=== PATIENT | female | born 1975 | race Caucasian/White ===

== ENCOUNTER 2017-06-20 22:23 | Inpatient (IN) ==
[2017-06-21] MEDS: MORPHINE IV PRN ×5 (01:30→22:58)
[2017-06-21] MEDS ORDERED: NITROGLYCERIN SL PRN (03:52)
[2017-06-21] MEDS ORDERED: ZOFRAN IV PRN (03:52)
[2017-06-21 04:27] LABS: MANUAL DIFF NEEDED? NO
[2017-06-21 04:44] LABS: BASO% 0.3 % (0.0-0.8); EOS# 0.14 X1000 (0.0-0.7); EOS% 1.3 % (0.0-10.0); HEMOGLOBIN 12.6 g/dL (12.0-16.0); LYMPH# 3.39 X1000 (1.2-3.4); MCHC 34.1 g/dL (33-37); MCV 96.9 FL (81-99); MONO# 0.69 X1000 (0.11-0.59); MONO% 6.5 % (1.7-9.3); NEUT% 59.9 % (42.2-75.2); PLT 322 X1000 (130-400); RBC 3.82 XMIL (4.2-5.4)
[2017-06-21] MEDS: PRILOSEC PO SCH ×2 (06:24→09:57)
[2017-06-21] MEDS: LOVENOX SUBQ SCH (06:26)
[2017-06-21 06:55] LABS: URINE CULTURE NEEDED? NO; URINE MICRO REVIEW NEEDED? NO; URINE SOURCE CLEAN CATCH
[2017-06-21 07:01] LABS: BILIRUBIN URINE NEGATIVE (NEGATIVE); BLOOD URINE NEGATIVE (NEGATIVE); COLOR YELLOW; GLUCOSE URINE NEGATIVE (NEGATIVE); LEUKOCYTES URINE NEGATIVE (NEGATIVE); NITRITE URINE NEGATIVE (NEGATIVE); PROTEIN URINE TRACE mg/dL (NEGATIVE); TURBIDITY URINE CLEAR (CLEAR); UROBILINOGEN URINE NORMAL (NORMAL)
[2017-06-21 07:02] LABS: UR EPITHELIAL CELLS <10 /HPF (<10); URINE BACTERIA NEGATIVE /HPF; URINE RBC <10 /HPF (<10); URINE WBC <10 /HPF (<10)
--- NOTE | 2017-06-21 07:09 | EKG Report ---
Test Performed on : 06/21/2017 06:37:09 AM Test Reason : Chest Pain Blood Pressure : / mmHG Vent. Rate : 075 BPM Atrial Rate : 075 BPM P-R Int : 158 ms QRS Dur : 102 ms QT Int : 450 ms P-R-T Axes : 051 058 041 degrees QTc Int : 502 ms Normal sinus rhythm. Prolonged QT Abnormal ECG No previous ECGs available Confirmed by Stevie Vazquez MD ([id number]) on 06/22/2017 6:03:01 AM
[2017-06-21 07:24] LABS: UR AMPHETAMINES QUAL NONE DETECTED (NONE DETECT); UR BARBITUATES QUAL NONE DETECTED (NONE DETECT); UR BENZODIAZEPIN QUAL PRESUMPTIVE POSITIVE (NONE DETECT); UR CANNABINOIDS QUAL NONE DETECTED (NONE DETECT); UR COCAINE QUAL NONE DETECTED (NONE DETECT); UR METHADONE QUAL NONE DETECTED (NONE DETECT); UR OPIATES QUAL PRESUMPTIVE POSITIVE (NONE DETECT); UR OXYCODONE QUAL NONE DETECTED (NONE DETECT); UR PCP QUAL NONE DETECTED (NONE DETECT)
--- NOTE | 2017-06-21 08:23 | Diag Imaging Result Doc PS360 ---
EXAM: US ABDOMEN-COMPLETE HISTORY: RUQ Pain/ Tenderness TECHNIQUE: COMPARISON: None. FINDINGS: Normal pancreatic head and body. The pancreatic tail is obscured. Normal inferior vena cava and aorta. No focal hepatic abnormality. Normal right kidney. No hydronephrosis. The gallbladder is not present. The common bile duct measures 7 mm. The spleen is not enlarged. No ascites. Normal left kidney. No hydronephrosis. IMPRESSION: Cholecystectomy, but otherwise normal abdominal ultrasound Electronically signed by Liu Ojeda 06/21/2017 8:21 AM
--- NOTE | 2017-06-21 08:59 | HISTORY AND PHYSICAL ---
PRIMARY CARE PROVIDER: Dr. Sagastume. CHIEF COMPLAINT: Chest pain. HISTORY OF PRESENT ILLNESS: Ms. Goodman is a 41-year-old female who is a transfer from [facility] ER. She presented there yesterday June 20 at approximately 9 p.m. She presented with complaints of chest pain that started approximately 1:30 p.m. earlier that day. She reports that at the onset of chest pain, she was actually riding in a car. She was sitting, was not doing any strenuous activity. She reports chest pain that was in the center of her chest that radiated to her right shoulder, right breast, and around under her right breast in the right upper quadrant area. She describes it as a constant dull pain that was sharp in nature at times. She did report associated symptoms of one episode of feeling lightheaded, as well as some diaphoresis, shortness of breath, and did have 1 episode of nausea and vomiting. She reports that the pain medicine as well as nitroglycerin did improve her pain. It took it from about 8/10 down to 4/10. She states that she has had previous episodes like this, though not recently, where her chest began to hurt. She stated she thought it was because her potassium was low and will take a couple of potassium tablets and she would feel better. She did state that prior to arriving to the ER at [facility] yesterday, when her chest pain began at 1:30 she did take four 20 mEq potassium chloride tablets equaling a total of 80 mEq prior to coming to the ER. The patient does have prescriptions for Lasix as well as hydrochlorothiazide. When asked about this, she states that she takes it for frequent swelling in her legs though she denied any known history of congestive heart failure or any other heart problems except for hypertension. She does take pain medication as well as Neurontin for some chronic back pain secondary to a bulging disk and a spinal defect, though does not take any other medication except for an occasional BC Powder. She does report that she has a cough chronically in the mornings, though today she did report coughing all day, though this has been nonproductive. She denies any fever, body aches, or chills. She also denies any dysuria or urinary frequency. She reports that her last bowel movement was yesterday. She denies any hematochezia or melena. At [facility], they did do labs as well as an EKG for which her cardiac enzymes were negative. Her EKG showed sinus rhythm with frequent premature ventricular complexes with a prolonged QT at a rate of 95, QTc was 492. They also did perform a chest x-ray which showed no acute cardiopulmonary process and an abdomen, a flat and upright, which showed an abnormal bowel gas pattern, though this was nonspecific and nonobstructive with no evidence of free air. She was transferred to [facility] for further cardiology evaluation. REVIEW OF SYSTEMS: A 12 point review of systems was conducted with the patient. All were negative except for pertinent positives mentioned above in HPI. PAST MEDICAL HISTORY: 1. Hypertension. 2. Frequent swelling/edema in bilateral lower extremities. 3. Recurrent hypokalemia. 4. Chronic pain from bulging disk and reported spinal defect. 5. Gout. PAST SURGICAL HISTORY: 1. Hysterectomy. 2. Cholecystectomy. 3. Tubal ligation. SOCIAL HISTORY: The patient is a smoker. She smokes 1 pack of cigarettes a day and has so for 20 years. She denies any alcohol or illicit drug use. She lives in [place], [place]. She is disabled secondary to her chronic back pain. FAMILY HISTORY: Positive for lung cancer in her father. Her mother has a history of diabetes and CVA. She has 3 brothers who have a history of diabetes mellitus and heart disease. ALLERGIES: Patient reports no known allergies. HOME MEDICATION: 1. Potassium chloride 20 mEq tablet 1 p.o. daily. 2. Uloric 40 mg tablet 1 p.o. daily. 3. Hydrochlorothiazide 25 mg tablet 2 p.o. daily. 4. Lasix 40 mg p.o. daily. 5. Neurontin 800 mg p.o. t.i.d. 6. Hysingla extended release 40 mg tablet 1 p.o. daily. DIAGNOSTIC DATA/LABORATORY RESULTS: These are from the labs that were drawn at [facility]. White blood cell count is 16.1, hemoglobin 14.1, hematocrit 40.7, platelet count is 387,000. PT 10.1, INR 0.99, PTT 28.1. Sodium 139, potassium 3.2, chloride 90, bicarb 34, BUN 6, creatinine 0.7, glucose 129, calcium 8.9. Liver function tests are within normal limits. Magnesium 1.5, CK is 96. CK-MB is 1, myoglobin is 25, troponin is less than 0.01. EKG showed normal sinus rhythm with frequent premature ventricular complexes and a prolonged QT at a rate of 95 with a QTc of 492. CHEST X-RAY: Two views showed no acute cardiopulmonary process. Abdomen flat and upright, showed the bowel gas pattern is abnormal but nonspecific and nonobstructive with no evidence of free air. Scattered air fluid levels are noted on the upright image. These x-ray results were per radiologist. PHYSICAL EXAMINATION: VITAL SIGNS: Temperature 98.1 degrees, heart rate 92, respirations 18, blood pressure is 133/58, oxygen saturation is 98% on room air. GENERAL: Ms. Goodman is a pleasant 41-year-old, female who is resting comfortably in the inpatient bed. She was in no acute distress. She was awake, alert, and able to answer all questions appropriately. HEENT: Head is atraumatic, normocephalic. Pupils are equal, round, reactive to light, were 3 mm bilaterally and brisk. Subconjunctivae were pink. Oral mucosa is moist. Oropharynx is clear. NECK: Supple. Trachea midline. CARDIOVASCULAR: Patient has normal S1, S2. No murmurs, gallops, rubs appreciated with a regular rate and rhythm. PULMONARY: Patient has symmetrical chest expansion bilaterally. Lung sounds are clear to auscultation in bilateral full wang. ABDOMEN: Soft. Nondistended. The patient did report some tenderness upon palpation in the right upper quadrant, though the patient did report some tenderness upon palpation in the right upper quadrant. Bowel sounds were present in all 4 quadrants, were normoactive. EXTREMITIES: No cyanosis, clubbing, or edema noted. Pulse ,motor and sensory were intact in all extremities. Pedal pulses were 3+ bilaterally. Capillary refill is less than 3. INTEGUMENTARY: Patient's skin is pink, warm, dry, and intact. No lesions or sores noted. NEUROLOGICAL: Patient is alert and oriented x3. Cranial nerves 2-12 are grossly intact. ASSESSMENT/PLAN: 1. Chest pain. For this we will continue with a series of cardiac enzymes. We will repeat an EKG in the morning. The patient has had reported problems with swelling in her extremities. We have placed an order for an echocardiogram. Her pain at this time is relieved with morphine and nitroglycerin. She was given 325 mg aspirin at [facility]. She will be placed on telemetry for close monitoring and we have placed a consult with cardiology and will await their evaluation and further recommendations. 2. Hypertension. The patient does take hydrochlorothiazide though has been having recurrent problems with hypokalemia. We will hold this medication at this time. Her blood pressure is within normal limits and we will continue to monitor and likely place her on something different given her problems with this. 3. Chronic pain. We will continue the patient's Neurontin. She is receiving morphine at this time 2 mg IV q.4 hours for pain. 4. Nicotine dependence. We will discuss with the patient the importance of smoking cessation throughout her admission and upon discharge. We will place her on nicotine patch. 5. Deep vein thrombosis prophylaxis. We have provided Lovenox 40 mg subcutaneously q.24 hours. The patient will be placed on medical floor with telemetry. She will have vital signs q.4 hours. We will do strict intake and output. She will be NPO at this time for an abdominal ultrasound in the morning. She did report some right upper quadrant pain. She has had her gallbladder removed; though was still quite tender in this area and this has also been an area that she is reporting some pain. We will do the ultrasound for further evaluation and continue to follow. We will repeat a CBC, CMP, and cardiac enzymes in the morning. We have also placed an order for urinalysis and a urine drug screen as well. Further orders and recommendations pending hospital course, diagnostic studies, and physician evaluation. Dictated by DEVENDRA Carnes for Leon Pierce MD cc: Leon Pierce MD MTDD
[2017-06-21] MEDS ORDERED: NICODERM PATCH TD SCH (09:00)
[2017-06-21] MEDS ORDERED: ULORIC PO SCH (09:00)
[2017-06-21 09:10] LABS: AGAP 16; ALBUMIN 3.8 g/dL (3.5-5.0); ALKALINE PHOSPHATASE 71 U/L (32-104); BUN 5 mg/dL (8-22); CALCIUM 8.5 mg/dL (8.8-10.2); CHLORIDE 95 mmol/L (98-107); COSMO 283; GOT 17 U/L (10-30); GPT 13 U/L (10-36); POTASSIUM 2.8 mmol/L (3.5-5.1); SODIUM 143 mmol/L (136-145); TCO2 32 mmol/L (25-35); TOTAL BILIRUBIN 0.56 mg/dL (0.20-1.00); TOTAL PROTEIN 6.5 g/dL (6.3-8.3)
[2017-06-21] MEDS: NEURONTIN PO SCH ×3 (09:57→17:44)
[2017-06-21] MEDS ORDERED: KLOR-CON PO ONE (10:06)
[2017-06-21] MEDS ORDERED: MAGNESIUM SULFATE 4 GM/S.W.I. 4 GM/100 ML IVPB IV ONE ×2 (10:39→10:44)
[2017-06-21] MEDS ORDERED: NS 250 ML ONE (10:44)
[2017-06-21] MEDS: POTASSIUM CHLORIDE 20 MEQ/SWI 20 MEQ/100 ML IVPB IV SCH ×2 (10:50→15:03)
[2017-06-21 10:53] LABS: INR 1.01; PROTIME 10.6 Seconds (9.2-11.7); PTT 29.2 Seconds (22.0-36.0)
--- NOTE | 2017-06-21 12:08 | CONSULTATION ---
DATE OF CONSULTATION: 06/21/2017 CHIEF COMPLAINT: Chest pain. HISTORY OF PRESENT ILLNESS: This is a 41-year-old female presenting with chest discomfort to [facility] at about 9:00 p.m. last night. The patient states that she was in her usual state of health and experienced a bout of significant pain under the left breast, left anterior chest, sharp and moving down under the ribcage. This lasted for a moderate amount of time, no more than an hour and subsided. At about 9:00 p.m., she had a second bout of pain, this time more intense, and the pain was radiating from the chest to the epigastrium and then under the ribcage all the way to the back, like a tight belt. This went on for a while, and after being seen at [facility], she was sent to this hospital for further management. Over here, she was given nitroglycerin that seemed to help the pain. Right now , the pain is mild in severity. She is feeing just some headache, probably from the nitroglycerin. Upon initial encounter, her potassium level was noted to be low at 2.8. Her sodium is 143, BUN is 5, creatinine 0.6. Hemoglobin is 12.6. Her initial tests performed at [facility] included an abdominal x- ray that showed bowel gas pattern is abnormal but nonspecific. Her chest x-ray showed no acute cardiopulmonary process. There were scattered air fluid levels noted on the upright image. An abdominal ultrasound shows evidence of previous cholecystectomy. PAST MEDICAL HISTORY: Positive for hypertension. She has had some mild swelling of the hands and legs. She has chronic pain for which she goes to a pain physician in [place]. PAST SURGICAL HISTORY: She has had previous cervical cancer, and that was resected years ago. Subsequently she has had hysterectomy. She had previous tubal ligation and cholecystectomy. She has had 3 children. SOCIAL HISTORY: She lives with for the past 27 years. She is a smoker of 1 pack of cigarettes a day. REVIEW OF SYSTEMS: She has been complaining of cough and exertional dyspnea for some time. She is limited to perform her house chores by back pain and shortness of breath. The patient is obese with a body mass index of 33. FAMILY HISTORY: According to her is strongly positive for premature coronary heart disease in multiple siblings. HOME MEDICATIONS: At the time of his admission included potassium chloride, Uloric, hydrochlorothiazide, furosemide, gabapentin, Neurontin, hydrocodone bitartrate which is Hysingla ER 1 tablet daily. ALLERGIES: She reports no allergies. Other past medical history of note, she reports having elevated uric acid. Of note, her lipid panel shows an LDL of 93, HDL of 31, total cholesterol is 153, triglycerides 165. Her liver function tests were normal at the time of this patient's admission. PHYSICAL EXAMINATION: Blood pressure is 84/45, temperature 97.7, pulse 77, respirations 19. She is awake, alert and oriented, no distress. HEENT: Unremarkable. Chest: Diminished breath sounds bilaterally with some decreased expiratory phase. She is slightly tender to palpation in the epigastrium. No masses or hepatomegaly noted. No gallop, rubs or murmurs noted in the heart. Extremities showed good pulses, no peripheral edema. Neurologic: She moves all 4 extremities, follows commands. Skin shows no rash. DIAGNOSTIC DATA: Her 12-lead EKG obtained today shows sinus rhythm with prolongation of the QT interval. IMPRESSION: 1. The patient is presenting with really atypical chest discomfort. The differential includes coronary insufficiency, noncardiac pain, stemming from gastrointestinal origin, possibly pancreatitis given the fact that she has been taking hydrochlorothiazide and other diuretics. 2. History of chronic pain syndrome, on terminal gauger supervisor narcotic therapy. 3. nursing home smoker. The patient smokes 1 pack of cigarettes a day. She has clinical findings consistent with COPD. 4. Significant hypokalemia. 5. Obesity. RECOMMENDATIONS: 1. The patient is strongly advised to quit smoking. 2. The patient probably needs to reevaluate the need for aggressive diuretic therapy, especially if she does not really have congestive heart failure or any condition that really warrants the use of a combination of 2 diuretics. That would prevent recurrent hypokalemia. We are going to replace potassium and magnesium. We will review an echocardiogram that was done today, and we may consider doing a stress test on her at some point. At this time, it would not be a good idea given the fact that her potassium is very low with an abnormal EKG, and she could easily develop a serious arrhythmia. 3. Further intervention will depend on her clinical course. cc: MD Leon Abernathy MD MTDD
--- NOTE | 2017-06-21 14:30 | ECHO REPORT ---
ORDER DATE: 06/21/2017 INDICATION: Chest pain. FINDINGS: 1. Right atrium is normal size at 2.8 cm. 2. Mild tricuspid regurgitation. RV systolic pressure 34. 3. Normal RV size and systolic function. 4. No significant pulmonic insufficiency. 5. Normal left atrial size at 3 cm. 6. No mitral valve prolapse. Mild mitral regurgitation. 7. Normal LV size, end-diastolic dimension of 4.3. Normal wall thicknesses with a posterior and interventricular septal wall thickness 0.9 cm each. Normal LV systolic function. Calculated EF of 65% with normal wall motion. 8. Aortic valve opens well. No evidence of stenosis or insufficiency. The valve is trileaflet. 9. Aorta appears normal in visualized segments. 10. No pericardial effusion seen. cc: MD Leon Garcia MD
--- NOTE | 2017-06-21 15:19 | EKG Report ---
Test Performed on : 06/21/2017 2:58:29 PM Test Reason : chest pain Blood Pressure : / mmHG Vent. Rate : 081 BPM Atrial Rate : 081 BPM P-R Int : 154 ms QRS Dur : 092 ms QT Int : 416 ms P-R-T Axes : 066 052 044 degrees QTc Int : 483 ms Normal sinus rhythm. Prolonged QT Abnormal ECG When compared with ECG of 21-JUN-2017 06:37, (Unconfirmed) No significant change was found Confirmed by Stevie Vazquez MD ([id number]) on 06/22/2017 6:03:48 AM
--- NOTE | 2017-06-21 15:37 | PROGRESS NOTE ---
DATE: 06/21/2017 SUBJECTIVE: Ms. Goodman was admitted this morning. She presented with chest pain. A 41-year-old white female, transferred from [facility] ER, presented on the 06/20 yesterday at approximately 9 p.m. Presented with complaints of chest pain. Started at approximately 1:30 p.m. earlier in the day. Reports an onset of pain actually riding in a car. No exertion. She was sitting and not driving. Reports chest pain in the center of her chest. Radiates to the right shoulder, right breast, and around her right breast in the right upper quadrant area. She described it as constant, dull pain that was sharp in nature at times. She did associate symptoms with episode of feeling lightheaded as well as some diaphoresis, shortness of breath. Did have one episode of nausea and vomiting. Presented. Nitroglycerin seemed to improve the pain. She states she has not had any previous episodes like this, so admitted with chest pain and Cardiology consulted. Very atypical. Differential includes: 1. Acute coronary insufficiency, noncardiac pain stemming from gastroesophageal origin, possibly pancreatitis given the fact she has been taking hydrochlorothiazide and other diuretics. 2. History of chronic pain. She has been on narcotic therapy. 3. Long-term smoker. OBJECTIVE: General: Exam today, she says she is back is hurting her and her legs are hurting her. Vital signs: Temperature 98.4 degrees, pulse 87, respirations 20, blood pressure 107/53. Lungs: Clear in all lung wang. Cardiovascular: Regular rhythm and rate without murmur or S3. Abdomen: Soft. Skin: Warm and dry. Chest: No chest pain. Wall tenderness reproduced. LABORATORY AND IMAGING: Troponin less than 0.01. Drug screen positive for opiates and positive for benzodiazepines. Abdominal ultrasound done this morning, status post cholecystectomy. Otherwise unremarkable. ASSESSMENT: Review of orders, I do not see anything to change. cc: MD Leon Talbot MD
[2017-06-21 16:16] LABS: AGAP 9; BUN 7 mg/dL (8-22); CALCIUM 8.8 mg/dL (8.8-10.2); CHLORIDE 93 mmol/L (98-107); COSMO 273; POTASSIUM 3.4 mmol/L (3.5-5.1); SODIUM 137 mmol/L (136-145); TCO2 35 mmol/L (25-35)
[2017-06-21] MEDS: TYLENOL PO PRN (17:48)
[2017-06-22] MEDS: MORPHINE IV PRN ×4 (04:20→18:13)
[2017-06-22] MEDS: LOVENOX SUBQ SCH (06:25)
[2017-06-22] MEDS: PRILOSEC PO SCH (06:26)
[2017-06-22 07:18] LABS: AGAP 9; BUN 8 mg/dL (8-22); CALCIUM 8.6 mg/dL (8.8-10.2); CHLORIDE 100 mmol/L (98-107); COSMO 282; POTASSIUM 3.2 mmol/L (3.5-5.1); SODIUM 142 mmol/L (136-145); TCO2 33 mmol/L (25-35)
[2017-06-22] MEDS: NEURONTIN PO SCH ×3 (09:42→17:28)
[2017-06-22] MEDS: NICODERM PATCH TD SCH (09:43)
[2017-06-22] MEDS: POTASSIUM CHLORIDE 20% LIQUID PO SCH ×2 (09:52→15:31)
[2017-06-22] MEDS: NORCO-7.5 PO PRN ×3 (12:53→20:36)
[2017-06-22] MEDS ORDERED: NEOSPORIN OINTMENT TUBE TOP ONE (15:32)
[2017-06-22] MEDS: TYLENOL PO PRN ×2 (15:38→20:53)
--- NOTE | 2017-06-22 17:27 | PROGRESS NOTE ---
DATE: 06/22/2017 Ms. Goodman was admitted on 06/21/2017 with chest pain by Dr. Sagastume. A 41-year-old female, transferred from [facility] presented on the 20 of June with complaints of chest pain. This started approximately 1:30 early in the day and had progressive chest pain. Was admitted. EKG and enzymes unremarkable. Dr. Kline is seen her yesterday and very atypical chest pain. The plan was to do a Lexiscan, nuclear cardiac scan when able. EKG from this morning does not appear to be changed and no significant ST-segment changes. ASSESSMENT AND PLAN: 1. Nonspecific cardiac pain. Plan I think is to do a Lexiscan. I think we are waiting on electrolytes were a little low, potassium a little low and supplementing. The magnesium looks good so hopefully Lexiscan tomorrow. 2. History of chronic pain syndrome. Aware. 3. Long-term smoker. 4. Hypokalemia which was supplemented. 5. Obesity. cc: Abhi Chinchilla MD
[2017-06-23] MEDS: NORCO-7.5 PO PRN ×2 (01:15→13:56)
[2017-06-23] MEDS: MORPHINE IV PRN ×3 (05:20→15:18)
[2017-06-23] MEDS: PRILOSEC PO SCH (06:12)
[2017-06-23] MEDS: LOVENOX SUBQ SCH (06:12)
[2017-06-23 06:57] LABS: AGAP 5; BUN 8 mg/dL (8-22); CALCIUM 8.8 mg/dL (8.8-10.2); CHLORIDE 102 mmol/L (98-107); COSMO 276; MAGNESIUM 1.8 mg/dL (1.5-2.7); POTASSIUM 4.2 mmol/L (3.5-5.1); SODIUM 139 mmol/L (136-145); TCO2 32 mmol/L (25-35)
[2017-06-23] MEDS ORDERED: LEXISCAN ONE (08:08)
[2017-06-23] MEDS: NEURONTIN PO SCH ×2 (10:46→13:56)
[2017-06-23] MEDS: NICODERM PATCH TD SCH (10:47)
[2017-06-23 13:56] VITALS: BP 171/73
[2017-06-23] MEDS: TYLENOL PO PRN (15:18)
--- NOTE | 2017-06-23 16:40 | DISCHARGE SUMMARY ---
ADMISSION DATE: 06/20/2017 DISCHARGE DATE: 06/23/2017 HISTORY OF PRESENT ILLNESS: This is a 41-year-old, who was a transfer from [facility]. Presented on June 20 at approximately 9 p.m. She had complaints of chest pain that started approximately 1:30 p.m. earlier that day. Reports the onset of chest pain was actually riding in a car. She was sitting and not doing anything strenuous. Chest pain was at the center of her chest and radiated to the right shoulder and around to the right breast in the right upper quadrant area described consistent with dull pain was sharp in nature at times. She did report associated symptoms 1 episode of feeling lightheaded as well as some diaphoresis and shortness of breath. Had 1 episode of nausea and vomiting. She reported that the pain medicine as well as her nitroglycerin did improve the pain. It took it from an 8/10 to a 4/10. States that she has had previous episodes like this though not recently where her chest begins to hurt. She started she thought it was because her potassium was low and that she could take a couple potassium tablets and would feel better. Prior to arriving to the ER in [facility] chest pain began at 1:30. She did take her for 20 mEq of KCl for total of 80 mEq before she came to the emergency room. The patient did have prescription for Lasix and hydrochlorothiazide. When asked about this she states that she takes it infrequent for swelling in her legs. Denies any known history of congestive heart failure or liver dysfunction except for hypertension her only significant history. She does take pain medication as well as Neurontin for chronic back pain, bulging disk and a spinal defect that she reports. She does not take any other medication except for occasional BC Powder and she reports cough, chronic in the mornings, and did report coughing all day but it was nonproductive. PAST MEDICAL HISTORY: Reviewed again: 1. Hypertension. 2. Frequent swelling, edema bilateral extremities. 3. Recurring hypokalemia. 4. Chronic pain from bulging disk, reported spinal defect. 5. Gout. 6. Chest pain seemed to resolve. HOSPITAL COURSE: EKGs and cardiac enzymes were unremarkable. She had an abdominal ultrasound done on 06/21 and it was status post cholecystectomy, otherwise normal. Dr. Kline was consulted, nonspecific chest pain and elected do a Rodri scan nuclear cardiac scan which was completely normal. No sign of ischemia and felt she could go home on 06/23/2017. DISCHARGE INSTRUCTIONS: She is on Uloric 1 tablet daily. Lasix 40 mg a day. Neurontin she takes 800 mg t.i.d. I suggested she stop her hydrochlorothiazide and she can continue the potassium as per her primary care physician. She has hydrocodone which I will leave between her and her family physician. She does not have a primary care physician. She was followed by Dr. Sagastume in the past. cc: Abhi Chinchilla MD
--- NOTE | 2017-06-23 18:30 | Diag Imaging Result Document ---
PROCEDURE NAME: MYOCARDIAL PERF SCAN, STR/REST - 06/23/2017 STUDY: Same day rest-stress Lexiscan myocardial perfusion study. INDICATION: Chest pain, obesity. DESCRIPTION: The patient came into the Nuclear Lab, received a rest injection of technetium 99 sestamibi 11.9 millicuries. Multiple tomographic views of the cardiac structure were obtained at rest. Subsequently the patient underwent a Lexiscan protocol by injection of Lexiscan 0.4 mg. At peak injection, the patient received 33.2 millicuries of technetium 99 sestamibi. Multiple views of the cardiac structure were obtained following the completion of the protocol. SUMMARY OF ELECTROCARDIOGRAPHIC PORTION OF STUDY: Resting ECG shows sinus rhythm. Rate 73 beats per minute. Resting blood pressure 124/73. Resting ECG looks normal. During infusion of Lexiscan, the heart rate increased to a maximum of 112 beats per minute. Blood pressure dropped to 106/60. The patient reported moderate chest discomfort and mild shortness of breath. No palpitations were reported. ECG showed no ischemic changes. Following the completion of the infusion, the heart rate and blood pressure returned back to baseline. Symptoms subsided. IMPRESSION: In summary, the electrocardiographic response to infusion of Lexiscan is deemed to be normal. The symptoms reported by the patient are nonspecific. SUMMARY OF MYOCARDIAL PERFUSION PORTION OF STUDY: Poststress tomographic views of the left ventricle showed a very trivial focal apical defect. The rest images showed that this defect is fixed. Polar plots revealed the same. There is essentially normal myocardial perfusion with a very trivial apical anterior defect that is focal and mild. This is very consistent with apical thinning or breast attenuation artifact. No ischemia is noted. Gated SPECT shows normal left ventricular systolic function. Ejection fraction estimated at 73% with normal ventricular volumes. No wall motion abnormality. Lung-heart ratio is normal. TID is normal. IMPRESSION: In summary, this study showed: 1. Unremarkable electrocardiographic response to infusion of Lexiscan. 2. Normal poststress myocardial perfusion scan. There is no scintigraphic evidence of pharmacologically induced myocardial ischemia. 3. Normal left ventricular systolic function. Ejection fraction estimated at 73% with normal ventricular volumes. No wall motion abnormality. This study would represent low risk for ischemic events. cc: MD Heidy Abernathy PA
== END 2017-06-23 18:43 | disposition home or self-care (01) ==
LOC: SUATTDRO 22:23 → 3N 22:23
PROVIDERS: ATTEND Emergency Medicine

== ENCOUNTER 2019-10-18 13:53 | Inpatient (IN) ==
[2019-10-18] MEDS ORDERED: DUONEB (A & A) INH ONE (14:14)
--- NOTE | 2019-10-18 14:21 | PROVIDER DOCUMENTATION ---
HPI-Respiratory General - General Chief Complaint: SEPSIS ALERT - D Stated Complaint: SOB Time Seen by Provider: 10/18/19 14:09 Source: patient Allergies/Adverse Reactions: Patient Allergies Allergy/AdvReac Type Severity Reaction Status Date / Time No Known Allergies Allergy Verified 10/18/19 14:48 Home Medications: Home Medication List Medication Instructions Recorded Confirmed Last Taken Type Gabapentin [Neurontin] 800 mg PO TID 01/24/16 10/18/19 07/29/18 History Potassium Chloride 1 tab PO DAILY 06/20/17 10/18/19 08/14/17 09:00 History Furosemide [Lasix] 40 mg PO DAILY 08/14/17 10/18/19 07/29/18 History Buprenorphine/Naloxone S.l. 1 each SL TID 09/01/18 10/18/19 Unknown History [Suboxone 8 mg/2 mg Film] Febuxostat [Uloric] 40 mg PO DAILY 10/18/19 10/18/19 Unknown History Folic Acid 1 mg PO DAILY 10/18/19 10/18/19 Unknown History Meloxicam 15 mg PO DAILY 10/18/19 10/18/19 Unknown History - History of Present Illness-Resp Nature of Presenting Problem: 44 YOF PRESENTS ON REC OF URGENT CARE FOR SOB, COUGH INCREASED SPUTUM PRODUCTION, EPISODIC PRESYNCOPE X 1 MONTH. SHE HAS SEEN HER PCP AND BEEN ON MULTIPLE ABX WITHOUT IMPROVEMENT. SHE DOES SMOKE. SHE DENIES CP, FEVER, CHILLS, N/V/D Severity in ED: reports: moderate Onset/Duration: reports: other (BEGAN ONE MONTH AGO) Timing: reports: still present Context: reports: recent URI Exposure: reports: unknown cause Cough Quality/Degree: reports: severe, productive cough, sputum (GREEN) Current Respiratory Medication Therapy: Initiated none Modifying Factors: improves with: rest. worse with: exertion, lying down Associated Symptoms: reports: cough, shortness of breath Similar Symptoms Previously?: No Recently seen or treated by another doctor?: No Review of Systems - Adult - REVIEW OF SYSTEMS - ADULT Constitutional: reports: no symptoms reported. denies: see HPI, chills, fever, fatique, night sweats, weight gain, weight loss, other Eyes: reports: no symptoms reported. denies: see HPI, discharge, dry eyes, decreased vision, blurred vision, double vision, eye pain, redness, other Ears, Nose, Mouth & Throat: reports: no symptoms reported. denies: see HPI, ear discharge, ear pain, hearing loss, tinnitus, epistaxis, sinus problem, nose pain, loose teeth, mouth/dental pain, mouth swelling, hoarseness, throat pain, throat swelling, other Cardiovascular: reports: no symptoms reported. denies: see HPI, chest pain, edema, heart murmur, irregular heart rate, orthopnea, palpitations, poor circulation, PND, syncope, other Respiratory: reports: see HPI, cough, dyspnea on exertion, excessive sputum production, shortness of breath, wheezing Gastrointestinal: reports: no symptoms reported. denies: see HPI, abdominal pain, hematemesis, constipation, diarrhea, difficulty swallowing, frequent heartburn, nausea, poor appetite, rectal bleeding, vomiting, other Genitourinary: reports: no symptoms reported. denies: see HPI, dysuria, discharge, frequency, flank pain, frequent UTI's, hematuria, hesitency, incontinence, urinary retention, urgency, other Musculoskeletal: reports: no symptoms reported. denies: see HPI, bone pain, back pain, frequent leg cramps, joint pain, joint swelling, muscle aches, muscle weakness, neck pain, other Integumentary: reports: no symptoms reported. denies: see HPI, hives, hair loss, itching, mole changes, nail changes, rash, skin sores/ulcer, skin thickening, other Neurological: reports: see HPI, dizziness/vertigo. denies: no symptoms reported, ataxia, headache/migraines, loss of balance, numbness, paresthesia, seizure, slurred speech, syncope, tremors, other Psychiatric: reports: no symptoms reported. denies: see HPI, anxiety, anti- depressant use, alcohol/drug dependence, depression, emotional problems, insomnia, panic attacks, suicidal thoughts, other Endocrine: reports: no symptoms reported. denies: see HPI, change in skin pigment, excessive sweating, goiter, cold intolerance, heat intolerance, increased hunger, increased thirst, polyuria, other Hematologic/Lymphatic: reports: no symptoms reported. denies: see HPI, blood clots, easy bruising, low blood count, lymphedema, prolonged bleeding, swollen lymph nodes, transfusions, other Allergic/Immunologic: reports: no symptoms reported. denies: see HPI, allergic reactions, allergic rhinitis, asthma, eczema, food allergy, frequent infections, hay fever, hives, positive PPD, urticaria, other Past History - Adult - PAST MEDICAL HISTORY-ADULT Review of Records: reports: Nursing Assessment Review, Social history reviewed & non-contributory. Major Childhood Illnesses: reports: denies history Cardiovascular: reports: denies history Respiratory: reports: denies history Gastrointestinal: reports: denies history Obstetrical/Gynecological: reports: denies history Genitourinary: reports: denies history Musculoskeletal: reports: chronic pain (back) Neurological: reports: denies history Psychiatric: reports: denies history Endocrine/Immune: reports: denies history Other Conditions: reports: denies history - PRIOR SURGERIES/PROCEDURES Surgical/Procedure History: reports: cholecystectomy, hysterectomy, BTL - IMMUNIZATION STATUS Childhood Immunizations: See Nurse Assessment Flu Vaccine: See Nurse Assessment - FAMILY HISTORY Family History: reviewed, not pertinent Physical Exam-General - PHYSICAL EXAM-ADULT Initial Vital Signs Reviewed: Yes - CONSTITUTIONAL General Appearance: alert, no apparent distress - EYES Eyes: PERRL/EOMI, pink conjunctivae - HEAD, EARS, NOSE, MOUTH & THROAT HENMT: normocephalic/atraumatic, moist mucous membranes, normal ENT inspection - NECK Neck: non-tender, full range of motion, supple - RESPIRATORY Respiratory: chest non-tender, no pleuratic chest pain, no respiratory distress, no accessory muscle use, wheezing - CARDIOVASCULAR Cardiovascular: normal peripheral pulses, regular rate, rhythm, no edema, no gallop, no JVD, no murmur - GASTROINTESTINAL (ABDOMEN) Abdominal Exam: normal bowel sounds, non tender, soft - LYMPHATIC Lymphatic: no adenopathy - MUSCULOSKELETAL Back Exam: normal inspection, no CVA tenderness, no vertebral tenderness Extremity: normal range of motion, non-tender, normal gait Peripheral Pulses: radial (R): 2+, radial (L): 2+ - SKIN Integumentary: normal color, normal turgor, warm/dry - NEUROLOGIC Neurologic: grossly normal - PSYCHIATRIC Psych/Mental Status: normal mood/affect, oriented x 3 Progress - PLAN OF CARE/RESULTS Progress/Plan/Lab Results: Vital Signs - 8 hr 10/18/19 13:58 10/18/19 14:33 10/18/19 14:45 Temperature 98.7 F Pulse Rate 98 H 98 H 108 H Pulse Rate [Sitting] Pulse Rate [Standing] Pulse Rate [Supine] Respiratory Rate 22 20 23 Blood Pressure 116/80 Blood Pressure [Sitting] Blood Pressure [Standing] Blood Pressure [Supine] O2 Sat by Pulse Oximetry 92 L 93 L 93 L 10/18/19 15:09 10/18/19 15:10 10/18/19 15:15 Temperature Pulse Rate 92 H 99 H 95 H Pulse Rate [Sitting] Pulse Rate [Standing] Pulse Rate [Supine] Respiratory Rate 22 16 16 Blood Pressure 143/106 Blood Pressure [Sitting] Blood Pressure [Standing] Blood Pressure [Supine] O2 Sat by Pulse Oximetry 93 L 92 L 92 L 10/18/19 15:23 10/18/19 15:26 10/18/19 15:27 Temperature Pulse Rate 83 94 H Pulse Rate [Sitting] 88 Pulse Rate [Standing] 90 Pulse Rate [Supine] 83 Respiratory Rate 20 16 Blood Pressure 163/106 166/99 Blood Pressure [Sitting] 166/99 Blood Pressure [Standing] 149/94 Blood Pressure [Supine] 163/106 O2 Sat by Pulse Oximetry 95 92 L 10/18/19 15:29 10/18/19 15:30 10/18/19 15:33 Temperature Pulse Rate 103 H 92 H 90 Pulse Rate [Sitting] Pulse Rate [Standing] Pulse Rate [Supine] Respiratory Rate 19 19 18 Blood Pressure 149/94 Blood Pressure [Sitting] Blood Pressure [Standing] Blood Pressure [Supine] O2 Sat by Pulse Oximetry 93 L 94 L Laboratory Results - last 24 hr 10/18/19 10/18/19 10/18/19 14:38 14:38 14:38 WBC 12.01 H RBC 4.72 Hgb 14.4 Hct 44.7 MCV 94.7 MCH 30.5 MCHC 32.2 L RDW Std Deviation 14.0 Plt Count 351 MPV 11.0 H Immature Gran % (Auto) 0.2 Neut % (Auto) 60.7 Lymph % (Auto) 28.7 Rooks % (Auto) 7.2 Eos % (Auto) 2.6 Baso % (Auto) 0.6 Immature Gran # (Auto) 0.03 Neut # (Auto) 7.28 H Lymph # (Auto) 3.45 H Rooks # (Auto) 0.87 H Eos # (Auto) 0.31 Baso # (Auto) 0.07 PT 13.4 INR 1.01 PTT (Actin FS) 27.5 D-Dimer, Quantitative 2.97 H Sodium 141 Potassium 3.5 Chloride 95 L Carbon Dioxide 35 Anion Gap 11 BUN 9 Creatinine 0.5 Estimated GFR/1.73 m2 > 60 BUN/Creatinine Ratio 18 Glucose 114 H Calculated Osmolality 281 Calcium 9.2 Total Bilirubin 0.27 AST 17 ALT 16 Alkaline Phosphatase 118 H Creatine Kinase 43 Troponin T Total Protein 6.9 Albumin 4.3 Globulin 2.6 Albumin/Globulin Ratio 1.7 Plasma Lactate Urine Source Urine Color Urine Turbidity Urine pH Ur Specific [place] Urine Protein Ur Glucose (Stick) Ur Ketones (Stick) Urine Blood Urine Nitrite Urine Bilirubin Urobilinogen Dipstick Urine Leukocytes Urine WBC (Auto) Urine RBC (Auto) U Epithel Cells (Auto) Urine Bacteria (Auto) 10/18/19 10/18/19 10/18/19 14:38 14:38 15:11 WBC RBC Hgb Hct MCV MCH MCHC RDW Std Deviation Plt Count MPV Immature Gran % (Auto) Neut % (Auto) Lymph % (Auto) [place] % (Auto) Eos % (Auto) Baso % (Auto) Immature Gran # (Auto) Neut # (Auto) Lymph # (Auto) [place] # (Auto) Eos # (Auto) Baso # (Auto) PT INR PTT (Actin FS) D-Dimer, Quantitative Sodium Potassium Chloride Carbon Dioxide Anion Gap BUN Creatinine Estimated GFR/1.73 m2 BUN/Creatinine Ratio Glucose Calculated Osmolality Calcium Total Bilirubin AST ALT Alkaline Phosphatase Creatine Kinase Troponin T < 0.010 Total Protein Albumin Globulin Albumin/Globulin Ratio Plasma Lactate 1.1 Urine Source CLEAN CATCH Urine Color YELLOW Urine Turbidity HAZY Urine pH 8.0 Ur Specific [place] 1.013 Urine Protein NEGATIVE Ur Glucose (Stick) NEGATIVE Ur Ketones (Stick) NEGATIVE Urine Blood NEGATIVE Urine Nitrite NEGATIVE Urine Bilirubin NEGATIVE Urobilinogen Dipstick NORMAL Urine Leukocytes NEGATIVE Urine WBC (Auto) <10 Urine RBC (Auto) <10 U Epithel Cells (Auto) <10 Urine Bacteria (Auto) NEGATIVE Orders Category Date Time Status Cardiac Monitoring DIRECTED Care 10/18/19 14:06 Active IV Insertion ORDERED Care 10/18/19 14:06 Completed Notify MD of + Sepsis Screen NOW Care 10/18/19 14:06 Active Notify Physician As Ordered Care 10/18/19 14:06 Active Orthostatic Vital Signs NOW Care 10/18/19 14:15 Active Oxygen Saturation ORDERED Care 10/18/19 14:15 Active CHEST-1 VIEW [RAD] Stat Exams 10/18/19 14:[address] HEAD W/O CONTRAST [CT] Stat Exams 10/18/19 14:15 Completed CTA [CT ANGIOGRM PULMONARY ARTERIES] [CT] Stat Exams 10/18/19 15:23 Completed BLOOD CULTURE [BLDCUL] Stat Lab 10/18/19 14:38 Received CBC WITH DIFF [HEME] Stat Lab 10/18/19 14:38 Completed CK PROFILE [SP CHEM] Stat Lab 10/18/19 14:38 Completed COMPREHENSIVE METABOLIC PANEL [CHEM] Stat Lab 10/18/19 14:38 Completed D-DIMER [COAG] Stat Lab 10/18/19 14:38 Completed LACTATE, PLASMA [CHEM] Lab 10/18/19 17:15 Uncollected LACTATE, PLASMA [CHEM] Lab 10/18/19 20:15 Uncollected LACTATE, PLASMA [CHEM] Q3H Lab 10/18/19 14:38 Completed PROTIME WITH INR [COAG] Stat Lab 10/18/19 14:38 Completed PTT [COAG] Stat Lab 10/18/19 14:38 Completed TROPONIN T Stat Lab 10/18/19 14:38 Completed URINALYSIS W/POSS RFLX CULT [URINALYSIS] Stat Lab 10/18/19 15:11 Completed Albuterol 2.5MG/Ipratrop 0.5MG [Duoneb (A & A)] Med 10/18/19 14:14 Discontinued 3 ml INH NOW ONE Methylprednisolone Sod Succ [Solu-Medrol] Med 10/18/19 15:06 Discontinued 125 mg IV NOW ONE Aerosol Treatments Routine Oth 10/18/19 14:15 Completed Aerosol Treatments Stat Oth 10/18/19 14:15 Completed Oxygen Device Stat Oth 10/18/19 14:06 Completed EKG [EKG] Stat Ther 10/18/19 13:58 Draft Result Diagrams: 10/18/19 14:38 10/18/19 14:38 - EKG 1 Time of EKG reading by physician:: 13:58 EKG Read and Signed by:: Lion Silva EKG Interpretation (*Must complete 3 of following elements*): Normal Rate: 94 Rhythm: NSR [place]: normal QRS: normal MD Interval: normal ST Wave: normal - XRAY 1 XRAY Study: Chest Impression: See EMR Report (EXAM: CHEST-1 VIEW 10/18/2019 HISTORY: SOB TECHNIQUE: AP portable upright at 1415 COMMENT: There are no previous studies. There is an apparent granuloma in the left base. The heart size and primary vascularity are within normal limits. There is no evidence of acute pulmonary disease. IMPRESSION: No acute disease. Electronically signed by Tai Sherman 10/18/2019 2:22 PM 10/18/19 1422 Interpreting Physician: Tai Sherman MD Dictated Date/Time: 10/18/19 1421 cc: Lion Silva MD; Diane Ott) - CT/MRI 1 CT Study: Head Impression: See EMR Report (EXAM: CT HEAD W/O CONTRAST 10/18/2019 HISTORY: DIZZINESS, PRESYNCOPE TECHNIQUE: This exam was performed using automated exposure control, adjustment of mA or kV according to patient size, and/or use of iterative reconstruction technique. COMMENT: There are no previous studies available for comparison. There is opacification of multiple ethmoid air cells bilaterally. There is mucosal thickening in the right sphenoid sinus and left maxillary sinus with fluid in the left maxillary sinus and to lesser extent the right maxillary sinus. There is no evidence of intracranial mass effect, bleed, or abnormal extra-axial fluid collection. IMPRESSION: Sinusitis as described. No acute intracranial disease. Electronically signed by Tai Sherman 10/18/2019 3:01 PM 10/18/19 1501 Interpreting Physician: Tai Sherman MD Dictated Date/Time: 10/18/19 1500 cc: Tamara Yeung; Diane Ott) - CONSULTS/PCP/HOSPITALIST Notification #1 *Consult/PCP/Hospitalist*: DEVENDRA STOCKTON Time Discussed: 16:24 Consult Disposition: Admit Departure - Departure Date of Disposition Decision: 10/18/19 Time of Disposition Decision: 16:23 DIAGNOSIS: Sinusitis, Pneumonia Disposition: HOME 01 Certified Medical Emergency: Emergent Condition: Fair Referrals and Follow-Ups: Diane Ott CRNP [Primary Care Provider] - - Critical Care Note This patient required my direct & personal management of CC.: No Attestation - Physician/ ANN Attestation Patient care was provided by Advanced Practice Provider:: Yes Advanced Practice Provider:: Tamara Yeung Advanced Practice Provider documentation review:: The Mid-level provider documentation, treatment plan and medical decision making was reviewed by the physician who agrees with all treatment and medical decision making by the MLP. The physician spent face to face time with patient:: No Advanced Practice Provider documentation review:: Supervising physician onsite and consulted in the evaluation and care of this patient. The physician did not have a face to face encounter with the patient.
--- NOTE | 2019-10-18 14:24 | Diag Imaging Result Doc PS360 ---
EXAM: CHEST-1 VIEW 10/18/2019 HISTORY: SOB TECHNIQUE: AP portable upright at 1415 COMMENT: There are no previous studies. There is an apparent granuloma in the left base. The heart size and primary vascularity are within normal limits. There is no evidence of acute pulmonary disease. IMPRESSION: No acute disease. Electronically signed by Tai Sherman 10/18/2019 2:22 PM
[2019-10-18 15:03] LABS: BASO# 0.07 X1000 (0.0-0.2); BASO% 0.6 % (0.0-0.8); EOS# 0.31 X1000 (0.0-0.7); EOS% 2.6 % (0.0-10.0); HEMATOCRIT 44.7 % (37.0-47.0); HEMOGLOBIN 14.4 g/dL (12.0-16.0); IMM GRAN# 0.03 X1000 (0.0-0.04); IMM GRAN% 0.2 % (0.0-0.5); LYMPH# 3.45 X1000 (1.2-3.4); LYMPH% 28.7 % (20.5-51.1); MCH 30.5 PG (27-31); MCHC 32.2 g/dL (33-37); MCV 94.7 FL (81-99); MONO# 0.87 X1000 (0.11-0.59); MONO% 7.2 % (1.7-9.3); NEUT# 7.28 X1000 (1.4-6.5); NEUT% 60.7 % (42.2-75.2); PLT 351 X1000 (130-400); RBC 4.72 XMIL (4.2-5.4); WBC 12.01 X1000 (4.8-10.8)
--- NOTE | 2019-10-18 15:03 | Diag Imaging Result Doc PS360 ---
EXAM: CT HEAD W/O CONTRAST 10/18/2019 HISTORY: DIZZINESS, PRESYNCOPE TECHNIQUE: This exam was performed using automated exposure control, adjustment of mA or kV according to patient size, and/or use of iterative reconstruction technique. COMMENT: There are no previous studies available for comparison. There is opacification of multiple ethmoid air cells bilaterally. There is mucosal thickening in the right sphenoid sinus and left maxillary sinus with fluid in the left maxillary sinus and to lesser extent the right maxillary sinus. There is no evidence of intracranial mass effect, bleed, or abnormal extra-axial fluid collection. IMPRESSION: Sinusitis as described. No acute intracranial disease. Electronically signed by Tai Sherman 10/18/2019 3:01 PM
--- NOTE | 2019-10-18 15:04 | EKG Report ---
Test Performed on : 10/18/2019 1:58:49 PM Test Reason : SOB Blood Pressure : / mmHG Vent. Rate : 094 BPM Atrial Rate : 094 BPM P-R Int : 142 ms QRS Dur : 090 ms QT Int : 362 ms P-R-T Axes : 060 031 045 degrees QTc Int : 452 ms Normal sinus rhythm. Normal ECG When compared with ECG of 01-SEP-2018 17:49, No significant change was found Unconfirmed Result
[2019-10-18 15:05] LABS: INR 1.01; PROTIME 13.4 Seconds (11.0-16.0)
[2019-10-18 15:06] LABS: PTT 27.5 Seconds (22.3-41.8)
[2019-10-18] MEDS ORDERED: SOLU-MEDROL IV ONE (15:06)
[2019-10-18 15:18] LABS: AGAP 11; ALB/GLOB RATIO 1.7; ALBUMIN 4.3 g/dL (3.5-5.0); ALKALINE PHOSPHATASE 118 U/L (32-104); BUN 9 mg/dL (8-22); CALCIUM 9.2 mg/dL (8.8-10.2); CHLORIDE 95 mmol/L (98-107); CK PROFILE 43 U/L (24-173); COSMO 281; CREATININE 0.5 mg/dL (0.5-0.9); ESTIMATED GFR > 60; GLUCOSE 114 mg/dL (70-104); GOT 17 U/L (10-30); GPT 16 U/L (10-36); POTASSIUM 3.5 mmol/L (3.5-5.1); SODIUM 141 mmol/L (136-145); TCO2 35 mmol/L (25-35); TOTAL BILIRUBIN 0.27 mg/dL (0.20-1.00); TOTAL PROTEIN 6.9 g/dL (6.3-8.3)
[2019-10-18 15:23] LABS: URINE SOURCE CLEAN CATCH
[2019-10-18 15:28] LABS: BILIRUBIN URINE NEGATIVE (NEGATIVE); BLOOD URINE NEGATIVE (NEGATIVE); COLOR YELLOW; GLUCOSE URINE NEGATIVE (NEGATIVE); KETONE URINE NEGATIVE (NEGATIVE); LEUKOCYTES URINE NEGATIVE (NEGATIVE); NITRITE URINE NEGATIVE (NEGATIVE); PROTEIN URINE NEGATIVE (NEGATIVE); SP GRAVITY URINE 1.013; TURBIDITY URINE HAZY (CLEAR); UROBILINOGEN URINE NORMAL (NORMAL)
[2019-10-18 15:30] LABS: UR EPITHELIAL CELLS <10 /HPF (<10); URINE BACTERIA NEGATIVE /HPF; URINE RBC <10 /HPF (<10); URINE WBC <10 /HPF (<10)
--- NOTE | 2019-10-18 16:09 | Diag Imaging Result Doc PS360 ---
EXAM: CT ANGIOGRM PULMONARY ARTERIES 10/18/2019 HISTORY: SOB, ELEVATED D-DIMER TECHNIQUE: This exam was performed using automated exposure control, adjustment of mA or kV according to patient size, and/or use of iterative reconstruction technique. COMMENT: 3-D MIPS were performed. There are no filling defects. The aorta is not distended and there is no evidence of dissection. There is some atherosclerotic plaque present particularly in the proximal descending aorta. No abnormal fluid collections are present. There is no evidence of significant adenopathy. There is a small pleural-based opacity present anterolateral medially and inferiorly in the right middle lobe and a similar opacity is present in the anterior inferior lingula. There are tree-in-bud opacities in both lower lobes. No previous thoracic studies are available for comparison, however in comparison with the portions of the lung bases included with the abdominal study of 09/01/2018 these findings were not present previously. IMPRESSION: Minimal bibasilar pneumonia. Advise follow-up until clear. Electronically signed by Tai Sherman 10/18/2019 4:07 PM
[2019-10-18] MEDS ORDERED: LEVAQUIN 500 MG/D5W 500 MG/100 ML IVPB IV ONE (16:20)
[2019-10-18] MEDS ORDERED: NS 1,000 ML IV ONE ×2 (16:20→16:21)
[2019-10-18] MEDS: NS 500 ML IV ONE ×2 (17:41→19:44)
[2019-10-18] MEDS: NS 1,000 ML IV ONE ×2 (17:41→19:01)
[2019-10-18] MEDS ORDERED: NS 1,000 ML IV SCH (18:00)
[2019-10-18] MEDS: NICODERM PATCH TD SCH (19:03)
[2019-10-18] MEDS: MAXIPIME 2 GM in NS 100 ML IV SCH (19:04)
[2019-10-18] MEDS: XOPENEX NEB INH SCH ×2 (19:24→23:25)
[2019-10-18] MEDS: ZYVOX 600 MG/D5W 600 MG/300 ML IVPB IV SCH (19:46)
[2019-10-18] MEDS: SOLU-MEDROL IV SCH (22:11)
[2019-10-18] MEDS: SUBOXONE 8 MG/2 MG SL SCH (22:11)
--- NOTE | 2019-10-18 22:47 | HISTORY AND PHYSICAL ---
PRIMARY CARE PHYSICIAN: Dr. Diane Ott. CHIEF COMPLAINT: One month of increasing shortness of breath. HISTORY OF PRESENT ILLNESS: Ms. Goodman is a 44-year-old female with a history of tobacco dependence, chronic back pain on Suboxone, and gout, who presented to the ER today with a chief complaint of increasing shortness of breath for the last month. The patient reports that her symptoms have worsened in the last week. She reports fevers and chills, as well as a productive cough with green sputum. She also complains of rhinorrhea, decreased appetite, and shortness of breath with minimal exertion. The patient states that she smokes a pack of cigarettes every day and has been doing this for the last 26 years. The patient reports that she has never been diagnosed with COPD or any type of lung disorder, despite her smoking history. The patient contacted her primary care physician and was given a prescription for azithromycin on 10/16/2019. She reports that she took the medication, but did not notice any improvement in her respiratory symptoms. She was also given a Medrol Dosepak on that same day, with no relief. In the ER, the patient was noted to have a D-dimer of 2.9. A pulmonary arteriogram was performed which was noted to be negative for pulmonary embolism. However, it did reveal bibasilar pneumonia. While in the ER, the patient received IV fluid resuscitation, 125 mg of IV methylprednisolone, and 500 mg of IV Levaquin. PAST MEDICAL HISTORY: 1. Tobacco dependence. 2. Chronic back pain. 3. Gout. 4. Neuropathy. 5. Anxiety disorder. PAST SURGICAL HISTORY: 1. Hysterectomy. 2. Cholecystectomy. 3. Tubal ligation. FAMILY HISTORY: The patient's mother has had a DVT, diabetes, chronic kidney disease. ALLERGIES: No known drug allergies. SOCIAL HISTORY: The patient is and lives at home with her . She currently smokes 1 pack of cigarettes a day and has been doing this for 26 years. She denies any alcohol usage or illicit drug use. HOME MEDICATIONS: 1. Suboxone 1 film sublingual 3 times a day. 2. Uloric 40 mg oral daily. 3. Folic acid 1 mg oral daily. 4. Lasix 40 mg p.o. daily. 5. Neurontin 800 mg oral 3 times a day. 6. Meloxicam 15 mg oral daily. 7. Potassium chloride 20 mEq oral daily. REVIEW OF SYSTEMS: A 12-point review of systems has been performed. Please refer to the history of present illness for pertinent positives and negatives. PHYSICAL EXAMINATION: VITAL SIGNS: Temperature 98.2 degrees, blood pressure 163/79, heart rate 100, respirations 20, O2 saturation is 92% on 2 L nasal cannula. GENERAL: This is a middle-aged female, sitting up on the stretcher in no acute distress. HEENT: Normocephalic, atraumatic. PERRLA, EOMI. Trachea is midline. NECK: Supple. No JVD. No lymphadenopathy. HEART: S1, S2 normal. Tachycardic. LUNGS: Diffuse rhonchi bilaterally with wheezing. ABDOMEN: Positive bowel sounds. Soft, nontender, nondistended. EXTREMITIES: No edema. No cyanosis. No calf tenderness. Peripheral pulses palpable. NEUROLOGIC: The patient is alert and oriented x4. No focal neurologic deficits noted. Cranial nerves 2-12 intact. LABORATORY AND DIAGNOSTIC DATA: White blood cell count 12, hemoglobin 14.4, hematocrit 44.7, platelets 351,000. Sodium 141, potassium 3.5, chloride 95, CO2 of 35, BUN 9, creatinine 0.5 glucose 114, calcium 9.2. AST 17, ALT 16, alkaline phosphatase 118. Troponin less than 0.01. Albumin 4.3. UA negative. Pulmonary arteriogram: Minimal bibasilar pneumonia. No evidence of pulmonary embolism. Chest x-ray reveals normal sinus rhythm at 94 beats per minute. Head CT reveals sinusitis involving the right sphenoid bone, left maxillary sinus, and right maxillary sinus. ASSESSMENT AND PLAN: 1. Acute hypoxemic respiratory failure likely secondary to bilateral lobe pneumonia. The patient has been started on treatment for the pneumonia. We will continue with supplemental oxygen as well as bronchodilator therapy. 2. Community-acquired pneumonia. Blood cultures have been obtained. Also, a sputum culture with Gram stain has been ordered. The patient has been started on broad-spectrum antibiotics, bronchodilator therapy, supplemental oxygen, and incentive spirometry. 3. Acute sinusitis. Antibiotic therapy has been initiated. We will monitor the patient closely for improvement. 4. Chronic obstructive pulmonary disease exacerbation. The patient has been started on IV steroids in addition to bronchodilator therapy. 5. Tobacco dependence. The patient has been counseled about smoking cessation. 6. Chronic back pain. Continue on Suboxone. 7. Neuropathy. Continue on Neurontin. 8. Deep vein thrombosis prophylaxis. Will start the patient on Lovenox. The plan of care was discussed with the patient and she is in agreement with admission for further treatment. cc: Prachi Butler MD
[2019-10-19] MEDS: TYLENOL PO PRN ×2 (00:20→14:32)
[2019-10-19] MEDS: XOPENEX NEB INH SCH ×6 (03:52→23:04)
[2019-10-19] MEDS: MAXIPIME 2 GM in NS 100 ML IV SCH ×2 (05:28→17:50)
[2019-10-19] MEDS: SUBOXONE 8 MG/2 MG SL SCH ×3 (05:28→22:18)
[2019-10-19] MEDS: PRILOSEC PO SCH (06:13)
[2019-10-19] MEDS: ZYVOX 600 MG/D5W 600 MG/300 ML IVPB IV SCH ×2 (06:13→18:59)
[2019-10-19] MEDS: SOLU-MEDROL IV SCH ×3 (06:13→22:18)
[2019-10-19 07:08] LABS: BASO# 0.01 X1000 (0.0-0.2); BASO% 0.1 % (0.0-0.8); HEMATOCRIT 42.2 % (37.0-47.0); HEMOGLOBIN 13.2 g/dL (12.0-16.0); IMM GRAN# 0.05 X1000 (0.0-0.04); IMM GRAN% 0.3 % (0.0-0.5); LYMPH# 0.81 X1000 (1.2-3.4); LYMPH% 4.4 % (20.5-51.1); MCH 30.1 PG (27-31); MCHC 31.3 g/dL (33-37); MCV 96.3 FL (81-99); MONO# 0.12 X1000 (0.11-0.59); MONO% 0.6 % (1.7-9.3); MPV 11.7 FL (7.4-10.4); NEUT# 17.58 X1000 (1.4-6.5); NEUT% 94.6 % (42.2-75.2); PLT 314 X1000 (130-400); RBC 4.38 XMIL (4.2-5.4); RDW 14.3 % (11.5-14.5); WBC 18.57 X1000 (4.8-10.8)
[2019-10-19 07:25] LABS: AGAP 13; BUN 11 mg/dL (8-22); CALCIUM 8.9 mg/dL (8.8-10.2); CHLORIDE 99 mmol/L (98-107); COSMO 286; CREATININE 0.7 mg/dL (0.5-0.9); ESTIMATED GFR > 60; GLUCOSE 302 mg/dL (70-104); SODIUM 138 mmol/L (136-145); TCO2 26 mmol/L (25-35)
--- NOTE | 2019-10-19 07:28 | Diag Imaging Result Doc PS360 ---
EXAM: CHEST-PORTABLE HISTORY: pneumonia TECHNIQUE: Single view COMPARISON: 10/18/2019 FINDINGS: The lungs are well expanded. The heart is not enlarged. The vessels are not distended. There are no infiltrates. No effusion identified. IMPRESSION: Negative exam. Electronically signed by Liu Ojeda 10/19/2019 7:25 AM
[2019-10-19 07:36] LABS: LYMPHS 6 % (21-51); SEGS 94 % (42-75)
[2019-10-19] MEDS ORDERED: NEURONTIN PO SCH (09:00)
[2019-10-19] MEDS: FOLIC ACID PO SCH (10:16)
[2019-10-19] MEDS: ULORIC PO SCH (10:16)
[2019-10-19] MEDS: MUCINEX PO SCH ×2 (10:16→22:18)
[2019-10-19] MEDS: TESSALON PO SCH ×3 (10:16→19:00)
[2019-10-19] MEDS: NICODERM PATCH TD SCH (10:16)
[2019-10-19] MEDS: LOVENOX SUBQ SCH (10:17)
[2019-10-19] MEDS: NEURONTIN PO SCH ×2 (14:10→22:00)
--- NOTE | 2019-10-19 19:29 | PROGRESS NOTE ---
DATE: 10/19/2019 INTERVAL HISTORY: Ms Goodman was admitted because of shortness of breath and greenish sputum with fevers and chills of 1 month's duration. She has been currently admitted for chronic obstructive pulmonary disease exacerbation and pneumonia. SUBJECTIVE: She states she is feeling better than yesterday. She is complaining of generalized body aches. She denies any complaints except mild shortness of breath and sputum production. We discussed about pending blood culture and sputum culture data. VITALS: Temperature of 98.4, pulse 90, respiratory rate 16, blood pressure 150/80. She is saturating 100% room air. PHYSICAL EXAMINATION: General: Not in acute distress. HEENT: Oral cavity is moist. She does have end-expiratory wheezes bilaterally and inspiratory crackles. Cardiovascular: S1, S2 normal. No murmur, rub, or gallop. Abdomen: Soft, nontender. Mild bilateral lower extremity edema. LABS: Suggestive of leukocytosis. Normal platelet count. Normal kidney function. She does have hyperglycemia, and I will order hemoglobin A1c for her tomorrow. Microbiology: No positive data so far. Her influenza screen was negative. ASSESSMENT AND PLAN: 1. Acute hypoxic respiratory failure due to bilateral lower lobe pneumonia. Continue intravenous cefepime and linezolid. Follow up blood culture and sputum culture results. Continue supplemental oxygen to maintain saturation more than 92%. 2. Acute chronic obstructive pulmonary disease exacerbation. The patient has a longstanding tobacco smoking history, though no previous diagnosis of chronic obstructive pulmonary disease. On examination she does appear to have wheeze. I will continue albuterol/ipratropium nebulization and intravenous steroid. I will also follow up with hemoglobin A1c to differentiate between steroid-induced hyperglycemia as well as diabetes mellitus. 3. Tobacco abuse. Continue nicotine patch. She was counseled about smoking cessation. 4. Chronic back pain and neuropathy. I will continue her home Suboxone and gabapentin. DISPOSITION: I will monitor the patient inside the hospital as we await blood culture and sputum culture. Plan of care discussed with the patient and her family. Their questions have been answered. cc: MD ZONIA Raymond
[2019-10-20] MEDS: XOPENEX NEB INH SCH ×6 (02:49→23:45)
[2019-10-20] MEDS: MAXIPIME 2 GM in NS 100 ML IV SCH ×2 (05:18→17:50)
[2019-10-20] MEDS: SUBOXONE 8 MG/2 MG SL SCH ×3 (05:59→22:05)
[2019-10-20] MEDS: SOLU-MEDROL IV SCH ×3 (06:00→22:05)
[2019-10-20] MEDS: PRILOSEC PO SCH (06:00)
[2019-10-20] MEDS: ZYVOX 600 MG/D5W 600 MG/300 ML IVPB IV SCH ×2 (06:00→19:52)
[2019-10-20 06:38] LABS: BASO# 0.01 X1000 (0.0-0.2); HEMATOCRIT 39.4 % (37.0-47.0); HEMOGLOBIN 12.3 g/dL (12.0-16.0); IMM GRAN# 0.09 X1000 (0.0-0.04); IMM GRAN% 0.4 % (0.0-0.5); LYMPH# 1.83 X1000 (1.2-3.4); MCH 30.3 PG (27-31); MCHC 31.2 g/dL (33-37); MONO# 1.33 X1000 (0.11-0.59); MONO% 5.8 % (1.7-9.3); MPV 11.2 FL (7.4-10.4); NEUT# 19.72 X1000 (1.4-6.5); NEUT% 85.8 % (42.2-75.2); PLT 322 X1000 (130-400); RBC 4.06 XMIL (4.2-5.4); RDW 14.6 % (11.5-14.5); WBC 22.98 X1000 (4.8-10.8)
[2019-10-20 06:56] LABS: AGAP 11; BUN 10 mg/dL (8-22); CALCIUM 8.9 mg/dL (8.8-10.2); CHLORIDE 102 mmol/L (98-107); COSMO 284; CREATININE 0.7 mg/dL (0.5-0.9); ESTIMATED GFR > 60; GLUCOSE 260 mg/dL (70-104); POTASSIUM 3.8 mmol/L (3.5-5.1); SODIUM 138 mmol/L (136-145); TCO2 25 mmol/L (25-35)
[2019-10-20 07:14] LABS: LYMPHS 6 % (21-51); MONO 6 % (1-9); SEGS 88 % (42-75)
[2019-10-20] MEDS: ULORIC PO SCH (08:25)
[2019-10-20] MEDS: TESSALON PO SCH ×3 (08:25→17:50)
[2019-10-20] MEDS: LOVENOX SUBQ SCH (08:25)
[2019-10-20] MEDS: NICODERM PATCH TD SCH (08:25)
[2019-10-20] MEDS: FOLIC ACID PO SCH (08:25)
[2019-10-20] MEDS: NEURONTIN PO SCH ×3 (08:25→20:12)
[2019-10-20] MEDS: MUCINEX PO SCH ×2 (08:25→20:12)
[2019-10-20] MEDS: TYLENOL PO PRN (08:26)
[2019-10-20] MEDS ORDERED: CULTURELLE PO ONE (11:45)
[2019-10-20] MEDS ORDERED: TOPAMAX PO ONE (11:47)
[2019-10-20] MEDS: NASONEX NASAL SPRAY NAS SCH (13:09)
[2019-10-20] MEDS: FIORICET PO PRN ×2 (15:16→20:24)
[2019-10-20] MEDS: MUCOMYST 20% INH SCH ×2 (15:23→19:22)
--- NOTE | 2019-10-20 18:51 | PROGRESS NOTE ---
DATE: 10/20/2019 SUBJECTIVE: The patient is resting comfortably. She complains of nasal congestion and a cough as well as a migraine headache. OBJECTIVE: Vital Signs: Temperature 97.8 degrees, blood pressure 141/76, heart rate 103, respirations 20, O2 saturations 97% on room air. General: This is an elderly female lying in bed in no acute distress. Heart: S1, S2 normal. Tachycardic. Lungs: Diffuse rhonchi with wheezes bilaterally. Abdomen: Positive bowel sounds. Soft, nontender, nondistended. Extremities: No edema. No cyanosis. Neurologic: The patient is alert and oriented x4. LABORATORY DATA: White blood cell count 22, Hemoglobin 12, hematocrit 39, platelets 222,000. Sodium 138, potassium 3.8, chloride 102, CO2 25, BUN 10, creatinine 0.7, glucose 260. ASSESSMENT AND PLAN: 1. Acute hypoxemic respiratory failure. Multifactorial. Continue to treat the underlying issues. 2. Bilateral lobe pneumonia. Continue with antibiotics, bronchodilator therapy and supplemental oxygen. We will also consult with the technology teacher. 3. Acute chronic obstructive pulmonary disease exacerbation. Continue on steroid therapy. 4. Migraine headaches. We will start the patient on Fioricet as needed as well as Topamax. 5. Acute sinusitis. Continue with antibiotic therapy. 6. Tobacco dependence. Continue on the NicoDerm patch. 7. History of gout. Continue on Uloric. 8. Chronic back pain. Continue on Suboxone. 9. Leukocytosis. Likely steroid induced. Continue to monitor. 10. Deep vein thrombosis prophylaxis. Continue on Lovenox. cc: Prachi Butler MD [facility]
[2019-10-21] MEDS: XOPENEX NEB INH SCH ×6 (03:31→23:28)
[2019-10-21 03:55] LABS: ALLEN TEST YES; BE 1.9 mmoll (-3.0-3.0); BLOOD TYPE ARTERIAL; HCO3-(ACT) 26.4 mmoll (20.0-26.0); METHB 1.8 % (0.0-1.5); O2HB 93.4 % (95.0-99.0); PCO2(98.6) 49 mmHg (35-45); PO2(98.6) 66 mmHg (60-100); SAMPLE BLOOD; SAO2 97.2 % (95.0-100.0); THB 8.3 g/dL (11.5-17.4); pH(98.6) 7.36 (7.35-7.45)
[2019-10-21 03:56] LABS: MODALITY ROOM AIR
[2019-10-21] MEDS: SUBOXONE 8 MG/2 MG SL SCH ×3 (05:32→22:23)
[2019-10-21] MEDS: MAXIPIME 2 GM in NS 100 ML IV SCH ×2 (05:33→17:03)
[2019-10-21] MEDS: PRILOSEC PO SCH (06:40)
[2019-10-21] MEDS: SOLU-MEDROL IV SCH ×3 (06:40→22:24)
[2019-10-21] MEDS: ZYVOX 600 MG/D5W 600 MG/300 ML IVPB IV SCH ×2 (06:40→17:45)
[2019-10-21 07:08] LABS: HEMATOCRIT 39.4 % (37.0-47.0); HEMOGLOBIN 12.4 g/dL (12.0-16.0); IMM GRAN# 0.11 X1000 (0.0-0.04); IMM GRAN% 0.7 % (0.0-0.5); LYMPH# 1.09 X1000 (1.2-3.4); LYMPH% 7.4 % (20.5-51.1); MCH 30.3 PG (27-31); MCHC 31.5 g/dL (33-37); MCV 96.3 FL (81-99); MONO# 0.55 X1000 (0.11-0.59); MONO% 3.7 % (1.7-9.3); MPV 11.4 FL (7.4-10.4); NEUT% 88.2 % (42.2-75.2); PLT 310 X1000 (130-400); RBC 4.09 XMIL (4.2-5.4); RDW 14.7 % (11.5-14.5); WBC 14.75 X1000 (4.8-10.8)
[2019-10-21 07:41] LABS: AGAP 10; BUN 11 mg/dL (8-22); CALCIUM 9.2 mg/dL (8.8-10.2); CHLORIDE 98 mmol/L (98-107); COSMO 278; CREATININE 0.7 mg/dL (0.5-0.9); ESTIMATED GFR > 60; GLUCOSE 287 mg/dL (70-104); SODIUM 134 mmol/L (136-145); TCO2 26 mmol/L (25-35)
[2019-10-21] MEDS: MUCOMYST 20% INH SCH ×2 (07:49→19:29)
[2019-10-21] MEDS: CULTURELLE PO SCH (09:27)
[2019-10-21] MEDS: NICODERM PATCH TD SCH (09:27)
[2019-10-21] MEDS: LOVENOX SUBQ SCH (09:27)
[2019-10-21] MEDS: MUCINEX PO SCH ×2 (09:27→22:23)
[2019-10-21] MEDS: ULORIC PO SCH (09:27)
[2019-10-21] MEDS: TESSALON PO SCH ×3 (09:28→17:03)
[2019-10-21] MEDS: FOLIC ACID PO SCH (09:28)
[2019-10-21] MEDS: NASONEX NASAL SPRAY NAS SCH (09:28)
[2019-10-21] MEDS: NEURONTIN PO SCH ×3 (09:28→22:22)
[2019-10-21] MEDS: FIORICET PO PRN ×3 (09:28→17:44)
[2019-10-21] MEDS: TOPAMAX PO SCH (09:28)
[2019-10-21] MEDS: LASIX PO SCH (09:28)
--- NOTE | 2019-10-21 15:36 | CONSULTATION ---
DATE OF CONSULTATION: 10/21/2019 CHIEF COMPLAINT: Progressive shortness of breath over 1 month. HISTORY OF PRESENT ILLNESS: This is a 44-year-old female with the complaint of progressive shortness of breath over the past month. She has a past medical history of tobacco dependence, chronic back pain, gout, neuropathy, and anxiety disorder. Recent CTA which was negative for pulmonary emboli revealed bibasilar pneumonia. PAST MEDICAL HISTORY: 1. Tobacco dependence. 2. Chronic back pain. 3. Gout. 4. Neuropathy. 5. Anxiety disorder. PAST SURGICAL HISTORY: 1. Hysterectomy. 2. Cholecystectomy. 3. Tubal ligation. FAMILY HISTORY: Mother positive for a history of DVT, diabetes, and chronic kidney disease. ALLERGIES: No known drug allergies. SOCIAL HISTORY: and lives at home with her . Currently smokes 1 pack per day of cigarettes and has done so for 26 years. Denies alcohol usage or illicit drug use. HOME MEDICATIONS: 1. Suboxone 1 film sublingual 3 times a day. 2. Uloric 40 mg oral daily. 3. Folic acid 1 mg oral daily. 4. Lasix 40 mg p.o. daily. 5. Neurontin 800 mg oral 3 times a day. 6. Meloxicam 15 mg oral daily. 7. Potassium chloride 20 mEq oral daily. REVIEW OF SYSTEMS: A 10-point review of systems was performed and the pertinent is listed within the HPI, otherwise noncontributory. PHYSICAL EXAMINATION: GENERAL: This is a 44-year-old female sitting up in bed in no acute distress at the present time with supplemental oxygen in use. VITAL SIGNS: Temperature 98.6, blood pressure 137.72, pulse 88, respirations 18, and O2 saturation 95%. HEENT: Head is normocephalic, atraumatic. PERRLA noted. Extraocular movements intact. NECK: Trachea midline. Neck is supple. HEART: S1 and S2 auscultated. LUNGS: Wheezing bilaterally. Nonlabored breathing. ABDOMEN: Positive bowel sounds in all 4 quadrants. Soft, nondistended, and nontender. EXTREMITIES: No edema or cyanosis. No calf tenderness. Peripheral pulses are palpable, 2+. NEUROLOGIC: Alert and oriented times 3. DIAGNOSTIC DATA: As mentioned in the HPI. LABORATORY DATA: White blood cells 14.75, red blood cells 4.09, hemoglobin 12.4, and hematocrit 39.4. PH 7.36, pCO2 49, pO2 66, HCO3 26.4, base excess 1.9,and oxyhemoglobin 93.4. Sodium 134, potassium 4, chloride 98, carbon dioxide 26, and glucose 287. ASSESSMENT: 1. Acute hypoxemic respiratory failure secondary to bilateral pneumonia. 2. Community-acquired pneumonia. 3. Chronic obstructive pulmonary disease exacerbation. 4. Tobacco dependence. 5. Neuropathy. PLAN: 1. Continue supplemental O2, bronchodilators, steroids, and antibiotics as prescribed. 2. Continue DVT prophylaxis with Lovenox 40 mg subcutaneously every 24 hours. 3. Continue GI prophylaxis with Prilosec 40 mg p.o. daily. 4. Smoking cessation Thank you for the courtesy of this consult. Dictated by DEVENDRA Millard for Minna Sy MD cc: DEVENDRA Millard MD [facility]
--- NOTE | 2019-10-21 18:28 | PROGRESS NOTE ---
DATE: 10/21/2019 SUBJECTIVE: The patient is resting comfortably. She states that she still feels short of breath. Her migraine has improved. OBJECTIVE: Vital Signs: Temperature 98.3 degrees, blood pressure 123/70, heart rate 96, respirations 18, and O2 saturation is 94% on 2 L nasal cannula. General: This is a chronically ill-appearing elderly female sitting at the edge of the bed in no acute distress. Heart: S1, S2 normal. Tachycardic. Lungs: Diminished breath sounds bilaterally. Mild expiratory wheezes. Abdomen: Positive bowel sounds. Soft, nontender, nondistended. Extremities: No edema. No cyanosis. Neurologic: The patient is alert and oriented x3. LABORATORIES: White blood cell count 14, hemoglobin 12, hematocrit 39, platelets 310,000. Sodium 144, potassium 4, chloride 98, CO2 of 26, BUN 11, creatinine 0.7, glucose 287. ASSESSMENT AND PLAN: 1. Acute hypoxemic respiratory failure. 2. Bilateral lobe pneumonia. Continue with antibiotics, bronchodilator therapy, and supplemental oxygen. 3. Acute chronic obstructive pulmonary disease exacerbation. Continue on bronchodilators, IV antibiotics, and supplemental oxygen. 4. Prediabetes. I will consult with the dietitian. 5. Migraine headaches, improved. Continue on Topamax. 6. Acute sinusitis. Continue with antibiotic therapy. 7. Tobacco dependence. Continue on the NicoDerm patch. 8. History of gout. Continue on Uloric. 9. Chronic back pain. Continue on Suboxone. 10. Deep vein thrombosis prophylaxis. Continue on Lovenox. 11. We will consult physical therapy. cc: Prachi Butler [facility]
[2019-10-22] MEDS: FIORICET PO PRN ×5 (01:32→20:02)
[2019-10-22] MEDS: XOPENEX NEB INH SCH ×6 (03:30→23:37)
[2019-10-22] MEDS: PRILOSEC PO SCH (06:37)
[2019-10-22] MEDS: MAXIPIME 2 GM in NS 100 ML IV SCH ×2 (06:37→17:40)
[2019-10-22] MEDS: SOLU-MEDROL IV SCH ×3 (06:38→22:36)
[2019-10-22] MEDS: SUBOXONE 8 MG/2 MG SL SCH ×3 (06:45→21:48)
[2019-10-22 06:57] LABS: BASO# 0.01 X1000 (0.0-0.2); BASO% 0.1 % (0.0-0.8); HEMATOCRIT 40.5 % (37.0-47.0); HEMOGLOBIN 12.8 g/dL (12.0-16.0); IMM GRAN# 0.12 X1000 (0.0-0.04); IMM GRAN% 0.9 % (0.0-0.5); LYMPH# 1.28 X1000 (1.2-3.4); LYMPH% 9.5 % (20.5-51.1); MCH 30.3 PG (27-31); MCHC 31.6 g/dL (33-37); MONO# 0.64 X1000 (0.11-0.59); MONO% 4.8 % (1.7-9.3); MPV 11.2 FL (7.4-10.4); NEUT# 11.42 X1000 (1.4-6.5); NEUT% 84.7 % (42.2-75.2); PLT 299 X1000 (130-400); RBC 4.22 XMIL (4.2-5.4); RDW 14.4 % (11.5-14.5); WBC 13.47 X1000 (4.8-10.8)
[2019-10-22 07:14] LABS: AGAP 10; BUN 12 mg/dL (8-22); CALCIUM 8.6 mg/dL (8.8-10.2); CHLORIDE 94 mmol/L (98-107); COSMO 275; CREATININE 0.6 mg/dL (0.5-0.9); ESTIMATED GFR > 60; GLUCOSE 193 mg/dL (70-104); POTASSIUM 3.3 mmol/L (3.5-5.1); SODIUM 135 mmol/L (136-145); TCO2 31 mmol/L (25-35)
[2019-10-22] MEDS: ZYVOX 600 MG/D5W 600 MG/300 ML IVPB IV SCH ×2 (07:37→18:30)
[2019-10-22] MEDS: MUCOMYST 20% INH SCH ×2 (08:19→19:16)
[2019-10-22] MEDS: FOLIC ACID PO SCH (09:34)
[2019-10-22] MEDS: NEURONTIN PO SCH ×3 (09:34→20:02)
[2019-10-22] MEDS: ULORIC PO SCH (09:34)
[2019-10-22] MEDS: MUCINEX PO SCH ×2 (09:34→20:03)
[2019-10-22] MEDS: LASIX PO SCH (09:34)
[2019-10-22] MEDS: TESSALON PO SCH ×3 (09:34→16:23)
[2019-10-22] MEDS: LOVENOX SUBQ SCH (09:34)
[2019-10-22] MEDS: TOPAMAX PO SCH (09:34)
[2019-10-22] MEDS: NICODERM PATCH TD SCH (09:34)
[2019-10-22] MEDS: CULTURELLE PO SCH (09:34)
[2019-10-22] MEDS: NASONEX NASAL SPRAY NAS SCH (09:34)
[2019-10-22] MEDS ORDERED: KLOR-CON PO ONE (15:48)
[2019-10-22] MEDS ORDERED: DIFLUCAN PO ONE (16:05)
--- NOTE | 2019-10-22 16:09 | PROGRESS NOTE ---
DATE: 10/22/2019 SUBJECTIVE: The patient is resting comfortably. She complains of a sore throat and just generalized weakness. OBJECTIVE: Vital Signs: Temperature 97.7 degrees, blood pressure 120/61, heart rate 79, respirations 16, O2 saturation 99% on 2 L nasal cannula. General: This is a chronically ill- appearing elderly female lying in bed in no acute distress. Heart: S1, S2 normal. Regular rate and rhythm. Lungs: Equal air entry bilaterally. No wheezing. No rales. Abdomen: Positive bowel sounds. Soft, nontender, nondistended. Extremities: No edema, no cyanosis. Neurologic: The patient is alert and oriented x4. LABS: White blood cell count 13, hemoglobin 12, hematocrit 40, platelets 299,000. Sodium 135, potassium 3.3, BUN 12, creatinine 0.6, glucose 193. ASSESSMENT AND PLAN: 1. Acute hypoxemic respiratory failure. Continue to treat the underlying issues. 2. Pneumonia. Continue with IV antibiotics, bronchodilator therapy, and supplemental oxygen. 3. Acute chronic obstructive pulmonary disease exacerbation. Continue on IV steroids, bronchodilator therapy, and antibiotics. 4. Migraines. Improved. Continue on Topamax. 5. Prediabetes. Continue to monitor the patient closely. We will place the patient on sliding scale insulin while receiving high-dose steroids. 6. Tobacco dependence. The patient has been counseled about smoking cessation. 7. History of gout. Continue on Uloric. 8. Chronic back pain. Continue on Suboxone. 9. Acute sinusitis. Continue with antibiotic therapy. 10. Deep vein thrombosis prophylaxis. Continue on Lovenox. 11. Continue with physical therapy. cc: Prachi Butler MD [facility]
[2019-10-22] MEDS: MYCOSTATIN SUSP PO SCH ×2 (16:23→20:02)
[2019-10-22] MEDS: HUMULIN R SUBQ SCH (22:35)
[2019-10-23] MEDS: FIORICET PO PRN ×3 (02:05→18:03)
[2019-10-23] MEDS: XOPENEX NEB INH SCH ×6 (03:08→23:37)
[2019-10-23] MEDS: SUBOXONE 8 MG/2 MG SL SCH ×3 (05:21→22:46)
[2019-10-23] MEDS: MAXIPIME 2 GM in NS 100 ML IV SCH ×2 (05:21→18:04)
[2019-10-23] MEDS: ZYVOX 600 MG/D5W 600 MG/300 ML IVPB IV SCH ×2 (05:22→18:36)
[2019-10-23] MEDS: SOLU-MEDROL IV SCH ×2 (06:42→15:14)
[2019-10-23] MEDS: HUMULIN R SUBQ SCH ×4 (06:42→21:01)
[2019-10-23] MEDS: PRILOSEC PO SCH (06:42)
[2019-10-23 07:10] LABS: HEMATOCRIT 41.4 % (37.0-47.0); HEMOGLOBIN 13.2 g/dL (12.0-16.0); IMM GRAN% 0.7 % (0.0-0.5); LYMPH# 1.29 X1000 (1.2-3.4); LYMPH% 8.6 % (20.5-51.1); MCH 30.3 PG (27-31); MCHC 31.9 g/dL (33-37); MONO# 0.53 X1000 (0.11-0.59); MONO% 3.5 % (1.7-9.3); MPV 10.9 FL (7.4-10.4); NEUT# 13.07 X1000 (1.4-6.5); NEUT% 87.2 % (42.2-75.2); PLT 305 X1000 (130-400); RBC 4.36 XMIL (4.2-5.4); RDW 14.3 % (11.5-14.5); WBC 14.99 X1000 (4.8-10.8)
--- NOTE | 2019-10-23 07:33 | Diag Imaging Result Doc PS360 ---
EXAM: CHEST-1 VIEW INDICATION: pneumonia TECHNIQUE: One view COMPARISON: 10/19/2019 FINDINGS: There is suggestion of mild subsegmental atelectasis at the left lung base. No new consolidation is identified, otherwise. Cardiac silhouette is stable. IMPRESSION: Mild left basilar subsegmental atelectasis. Electronically signed by Saul Hightower 10/23/2019 7:30 AM
[2019-10-23 07:38] LABS: AGAP 13; BUN 15 mg/dL (8-22); CALCIUM 9.1 mg/dL (8.8-10.2); CHLORIDE 95 mmol/L (98-107); COSMO 279; CREATININE 0.5 mg/dL (0.5-0.9); ESTIMATED GFR > 60; GLUCOSE 175 mg/dL (70-104); POTASSIUM 4.2 mmol/L (3.5-5.1); SODIUM 137 mmol/L (136-145); TCO2 29 mmol/L (25-35)
[2019-10-23 07:47] LABS: LYMPHS 10 % (21-51); MONO 6 % (1-9); SEGS 84 % (42-75)
[2019-10-23] MEDS: NS NEB INH SCH ×2 (07:50→15:52)
[2019-10-23] MEDS: MUCOMYST 20% INH SCH ×2 (07:50→20:13)
[2019-10-23] MEDS: NASONEX NASAL SPRAY NAS SCH (10:05)
[2019-10-23] MEDS: NEURONTIN PO SCH ×3 (10:06→21:00)
[2019-10-23] MEDS: MYCOSTATIN SUSP PO SCH ×4 (10:06→21:01)
[2019-10-23] MEDS: ULORIC PO SCH (10:06)
[2019-10-23] MEDS: FOLIC ACID PO SCH (10:06)
[2019-10-23] MEDS: LASIX PO SCH (10:06)
[2019-10-23] MEDS: LOVENOX SUBQ SCH (10:06)
[2019-10-23] MEDS: TOPAMAX PO SCH (10:06)
[2019-10-23] MEDS: TESSALON PO SCH ×3 (10:06→18:03)
[2019-10-23] MEDS: MUCINEX PO SCH ×2 (10:06→21:00)
[2019-10-23] MEDS: NICODERM PATCH TD SCH (10:06)
[2019-10-23] MEDS: CULTURELLE PO SCH (10:06)
--- NOTE | 2019-10-23 12:38 | Diag Imaging Result Doc PS360 ---
BA SWALLOW W/VIDEO SPEECH THER - 10/23/2019 INDICATION: dysphagia TECHNIQUE: Total fluoroscopy time was 31 seconds. 117 images were obtained. COMPARISON: None FINDINGS: There is overall a good swallowing mechanism. There was probably trace penetration with thin liquids on one swallow. There is no aspiration. The remainder of the esophagus appears normal with no strictures. There is good clearance of the esophagus. IMPRESSION: Perhaps trace penetration with thin liquids but otherwise unremarkable. Electronically signed by Bj Lomas 10/23/2019 12:36 PM
[2019-10-24] MEDS: XOPENEX NEB INH SCH ×6 (03:20→23:21)
--- NOTE | 2019-10-24 04:04 | PROGRESS NOTE ---
DATE: 10/23/2019 SUBJECTIVE: The patient is sitting at the edge of the bed. She still complains of wheezing and shortness of breath with minimal exertion. OBJECTIVE: Vital Signs: Temperature 97.6 degrees, blood pressure 120/77, heart rate 92, respirations 18, O2 saturation 94% on room air. General: This is a chronically ill-appearing elderly female sitting up in bed in no acute distress. Heart: S1, S2 normal. Regular rate and rhythm. Lungs: Mild expiratory wheezes, no rales. Abdomen: Positive bowel sounds. Soft, nontender, nondistended. Extremities: No edema, no cyanosis, no calf tenderness. Neuro: The patient is alert and oriented x4. LABS: White blood cell count 14, hemoglobin 13, hematocrit 41, platelets 305,000. Sodium 137, potassium 4.2, chloride 95, CO2 29, BUN 15, creatinine 0.5, glucose 175, calcium 9.1. A modified barium swallow showed no aspiration. No strictures. ASSESSMENT AND PLAN: 1. Acute hypoxemic respiratory failure. Continue to treat the pneumonia and chronic obstructive pulmonary disease. 2. Pneumonia. Slowly improving. Continue with IV antibiotics, bronchodilator therapy, supplemental oxygen and incentive spirometry. 3. Chronic obstructive pulmonary disease exacerbation. Continue IV steroids, bronchodilator therapy and supplemental oxygen. 4. Migraines. Improved. Continue on Topamax. 5. Prediabetes. The patient's blood sugars are higher because of the high dose steroids. Continue with sliding scale insulin. 6. Tobacco dependence. The patient has a nicotine patch. The patient has been counseled about smoking cessation. 7. Chronic back pain. Continue Suboxone. 8. Acute sinusitis. Continue with antibiotic therapy. 9. History of gout. Continue Uloric. 10. Leukocytosis. This is likely steroid induced. Continue to monitor closely. 11. Deep vein thrombosis prophylaxis. Continue on Lovenox. 12. Continue with physical therapy. cc: Prachi Butler MD
[2019-10-24] MEDS: NICODERM PATCH TD SCH ×2 (04:11→09:16)
[2019-10-24] MEDS: FIORICET PO PRN ×4 (04:11→20:11)
[2019-10-24] MEDS: MAXIPIME 2 GM in NS 100 ML IV SCH ×2 (05:19→17:23)
[2019-10-24] MEDS: HUMULIN R SUBQ SCH ×4 (06:59→22:42)
[2019-10-24 07:35] LABS: BASO# 0.01 X1000 (0.0-0.2); BASO% 0.1 % (0.0-0.8); EOS# 0.02 X1000 (0.0-0.7); EOS% 0.1 % (0.0-10.0); HEMATOCRIT 40.7 % (37.0-47.0); HEMOGLOBIN 12.5 g/dL (12.0-16.0); IMM GRAN# 0.18 X1000 (0.0-0.04); IMM GRAN% 1.1 % (0.0-0.5); LYMPH# 2.99 X1000 (1.2-3.4); LYMPH% 17.7 % (20.5-51.1); MCH 29.6 PG (27-31); MCHC 30.7 g/dL (33-37); MCV 96.2 FL (81-99); MONO# 1.41 X1000 (0.11-0.59); MONO% 8.3 % (1.7-9.3); MPV 11.2 FL (7.4-10.4); NEUT# 12.29 X1000 (1.4-6.5); NEUT% 72.7 % (42.2-75.2); PLT 285 X1000 (130-400); RBC 4.23 XMIL (4.2-5.4); RDW 14.5 % (11.5-14.5)
[2019-10-24] MEDS: MUCOMYST 20% INH SCH ×2 (07:48→19:21)
[2019-10-24] MEDS: NS NEB INH SCH ×2 (07:48→11:28)
[2019-10-24] MEDS: SUBOXONE 8 MG/2 MG SL SCH ×3 (08:01→22:41)
[2019-10-24] MEDS: ZYVOX 600 MG/D5W 600 MG/300 ML IVPB IV SCH ×2 (08:02→20:12)
[2019-10-24 08:03] LABS: AGAP 10; BUN 20 mg/dL (8-22); CALCIUM 8.7 mg/dL (8.8-10.2); CHLORIDE 97 mmol/L (98-107); COSMO 286; CREATININE 0.5 mg/dL (0.5-0.9); ESTIMATED GFR > 60; GLUCOSE 168 mg/dL (70-104); POTASSIUM 3.6 mmol/L (3.5-5.1); SODIUM 140 mmol/L (136-145); TCO2 33 mmol/L (25-35)
[2019-10-24] MEDS: PRILOSEC PO SCH (08:06)
[2019-10-24] MEDS ORDERED: LEVEMIR SUBQ SCH (09:00)
[2019-10-24] MEDS: NASONEX NASAL SPRAY NAS SCH (09:16)
[2019-10-24] MEDS: ULORIC PO SCH (09:16)
[2019-10-24] MEDS: MYCOSTATIN SUSP PO SCH ×4 (09:17→20:13)
[2019-10-24] MEDS: MUCINEX PO SCH (09:17)
[2019-10-24] MEDS: CULTURELLE PO SCH (09:17)
[2019-10-24] MEDS: FOLIC ACID PO SCH (09:17)
[2019-10-24] MEDS: LASIX PO SCH (09:17)
[2019-10-24] MEDS: NEURONTIN PO SCH ×3 (09:17→20:17)
[2019-10-24] MEDS: TOPAMAX PO SCH (09:17)
[2019-10-24] MEDS: SOLU-MEDROL IV SCH ×2 (09:17→20:13)
[2019-10-24] MEDS: LOVENOX SUBQ SCH (09:17)
[2019-10-24] MEDS: TESSALON PO SCH ×3 (09:17→17:23)
--- NOTE | 2019-10-24 22:18 | PROGRESS NOTE ---
DATE: 10/24/2019 INTERVAL HISTORY: No acute events overnight. Ms. Goodman has been feeling fine. She states that the migraine medication is helping her. She denies any other complaints. We discussed about improvement in her breathing function. I answered all of her questions. She is denying any chest pain, shortness of breath or cough, nausea, vomiting. She denies any abdominal pain. She is eating okay. She had a bowel movement, she said, yesterday. PHYSICAL EXAMINATION: Vital signs: Temperature of 98.4 degrees, pulse 94, respirations rate 16, blood pressure 120/66. She is saturating 97% room air. General: Not in acute distress. HEENT: Oral cavity is moist. Lungs: Air entry bilaterally equal. No wheeze or rhonchi. Mild inspiratory crackles, infrascapular region. Cardiovascular: S1, S2 normal. Regular. No murmur or gallop. Abdomen: Soft, mild right lower quadrant tenderness. Active bowel sounds. Extremities: No lower extremity edema. Neurologic: She is alert and oriented x3. Musculoskeletal: She has some tenderness over back. LABS: Suggestive of leukocytosis. Normal hemoglobin, normal platelet count. She has normal kidney function. Normal electrolytes. Microbiology, no positive data. IMAGING: No new imaging. ASSESSMENT AND PLAN: 1. Acute hypoxic respiratory failure due to bilateral lower lobe pneumonia, now improved. Culture data has been negative. I will stop intravenous cefepime and linezolid, as she has completed more than 5 days course of IV medication. She is no longer needing any supplemental oxygen. 2. Acute chronic obstructive pulmonary disease exacerbation with longstanding tobacco smoking history. I advised her tobacco cessation. I will discharge her on nicotine patches. I will continue her on bronchodilators. I will stop intravenous steroids today, since she is no longer wheezing. I will also stop the proton pump inhibitors that she has been on. 3. Steroid-induced hyperglycemia, currently well controlled. Her hemoglobin A1c was 6. I will stop insulin tonight. 4. Chronic back pain, neuropathy and headache. I will continue her home medication of Suboxone, gabapentin. I will continue her on Fioricet and topiramate. She should have outpatient follow up with her regular physician. DISPOSITION: If patient continues to do well, my plan is to discharge her home tomorrow. Plan of care discussed with her. All questions have been answered. cc: Juan Gonzalez MD
[2019-10-25] MEDS: FIORICET PO PRN (00:20)
[2019-10-25] MEDS: XOPENEX NEB INH SCH ×3 (03:12→12:23)
[2019-10-25] MEDS: HUMULIN R SUBQ SCH ×2 (06:39→11:42)
[2019-10-25] MEDS: SUBOXONE 8 MG/2 MG SL SCH (06:48)
[2019-10-25 07:18] VITALS: BP 126/73
[2019-10-25 07:36] LABS: AGAP 11; BUN 17 mg/dL (8-22); CALCIUM 9.2 mg/dL (8.8-10.2); CHLORIDE 96 mmol/L (98-107); COSMO 287; CREATININE 0.6 mg/dL (0.5-0.9); ESTIMATED GFR > 60; GLUCOSE 134 mg/dL (70-104); POTASSIUM 3.7 mmol/L (3.5-5.1); SODIUM 142 mmol/L (136-145); TCO2 35 mmol/L (25-35)
[2019-10-25] MEDS: NS NEB INH SCH (07:41)
[2019-10-25] MEDS: MUCOMYST 20% INH SCH (07:41)
[2019-10-25] MEDS: NEURONTIN PO SCH (09:34)
[2019-10-25] MEDS: NASONEX NASAL SPRAY NAS SCH (09:34)
[2019-10-25] MEDS: FOLIC ACID PO SCH (09:35)
[2019-10-25] MEDS: NICODERM PATCH TD SCH (09:35)
[2019-10-25] MEDS: TOPAMAX PO SCH (09:35)
[2019-10-25] MEDS: ULORIC PO SCH (09:35)
[2019-10-25] MEDS: LASIX PO SCH (09:35)
[2019-10-25] MEDS: LOVENOX SUBQ SCH (09:35)
--- NOTE | 2019-10-26 10:49 | DISCHARGE SUMMARY ---
ADMISSION DATE: 10/18/2019 DISCHARGE DATE: 10/25/2019 DISCHARGE DISPOSITION: Home. DISCHARGE CONDITION: Hemodynamically stable. She is breathing well on room air. She is denying any chest pain or shortness of breath. She is eating. DISCHARGE INSTRUCTIONS: We discussed about prescribing her albuterol ipratropium inhalers. Discussed about need for outpatient pulmonology follow-up and regular physician follow-up. Her family or friends are at bedside. Their questions have been addressed. She also has been advised to get a repeat CT scan in the future to follow up with the nodular opacity she had on the CT scan. DISCHARGE DIAGNOSES: 1. Acute hypoxic respiratory failure. 2. Bilateral lower lobe pneumonia. 3. Acute chronic obstructive pulmonary disease exacerbation. 4. Active tobacco abuse. 5. Steroid-induced hyperglycemia. 6. Migraine headache. 7. Peripheral neuropathy. 8. Chronic back pain. OTHER DIAGNOSES: 1. History of tobacco dependence. 2. History of gout. 3. History of anxiety. DISCHARGE MEDICATIONS: 1. Folic acid 1 mg daily. 2. Furosemide 40 mg daily. 3. Meloxicam 15 mg daily. 4. Potassium 20 mEq daily. 5. Buprenorphine/naloxone 1 film sublingual t.i.d. 6. Febuxostat 40 mg daily. 7. Ipratropium albuterol inhaler 1 puff inhaled every 6 hours as needed for shortness of breath. 8. Fioricet 1 tablet every 4 hours as needed for migraine headache. 9. Gabapentin 400 to 800 mg t.i.d. 10. Nicotine patch 21 mg daily, 1 month supply has been prescribed. VITAL SIGNS: At the time of discharge, temperature 97.6 degrees, pulse 88, respiratory rate 14, blood pressure 126/73, saturating 97% room air. PHYSICAL EXAMINATION: General: Not in acute distress. HEENT: Oral cavity has missing teeth and poor hygiene. Lungs: Air entry bilaterally equal. No wheeze, rhonchi, crackles. Cardiovascular: S1, S2 normal. Regular. No murmur, gallop, rub. Abdomen: Soft, obese, nontender. Extremities: No lower extremity edema. Neurologic: She is alert and oriented x3. She was able to walk in the room without any difficulty. SIGNIFICANT LABORATORY DATA: During hospital admission and discharge. On presentation, she had WBC [id number], on discharge it was 16,000, likely related to steroid. Hemoglobin is 12.5, platelet 285,000. Her potassium is 3.7, BUN 17, creatinine 0.6. MICROBIOLOGY: Her blood cultures, sputum culture, influenza screen, group A strep rapid antigen, throat culture and Clostridium difficile toxin antigens were negative. SIGNIFICANT IMAGING: During hospital admission, chest x-ray on presentation did not have any acute disease. Head CT on presentation for dizziness and presyncope had sinusitis without any intracranial disease. Pulmonary arteriogram had minimal bibasilar pneumonia. Chest x-ray on October 23 had subsegmental atelectasis or bibasilar. CONSULTATION DURING HOSPITAL ADMISSION: Pulmonology, Dr. Sy. HOSPITAL COURSE SUMMARY: Mr. Goodman is a 44-year-old lady who presented on 10/18/2019 with chief complaints of 1 month of increasing shortness of breath. She has chronic back pain and active tobacco abuse. She also had subjective fevers, chills, and productive cough with greenish sputum. Associated with that, she had rhinorrhea, decreased appetite and shortness of breath with minimal exertion. She was never really diagnosed with any lung disease despite active tobacco abuse and she was not using any inhalers at home. She initially contacted primary care physician and was given prescription of azithromycin which did not help, so she decided to come to the emergency room. In the emergency room, a pulmonary arteriogram performed for elevated D-dimer did not have any pulmonary embolism, but had bibasilar pneumonia. Considering her respiratory distress, she was admitted for inhaled bronchodilators and intravenous steroids for further management and was started on broad-spectrum antibiotics. Culture data did not show any significant growth and with bronchodilators, steroids and antibiotics, she improved. At the time of discharge, she has been off antibiotics for almost 24 hours and off steroids as well and she did not have worsening of respiratory distress. It was decided to discharge her on inhaled bronchodilators. The patient also had migraine headache, so she was given migraine medication, was advised to have a discussion with her regular physician about starting her prophylaxis in the future. TIME SPENT: More than 30 minutes of time was spent in discharging this patient. She was advised to have followup with regular physician and interface control officer. All of her questions have been answered. cc: Juan Gonzalez MD
== END 2019-10-25 12:42 | disposition home or self-care (01) | DRG 193 ==
LOC: ED 13:53 → SUATTDRO 18:30 → EDIPHOLD 18:30 → 4N 20:30
PROVIDERS: ATTEND Internal Medicine